=== PATIENT | female | born 1955 | race American Indian/Alaskan Native ===

== ENCOUNTER 2016-09-21 13:55 | Outpatient (CLI) | payer MEDICARE, MEDICAID | END 2016-09-21 13:56 | disposition home or self-care (01) | DX: G47.30 Sleep apnea, unspecified (principal) | CPT/HCPCS: 99214; G0463 ==

== ENCOUNTER 2016-11-13 13:06 | Outpatient (CLI) | payer MEDICARE, MEDICAID | END 2016-11-13 13:07 | disposition home or self-care (01) | DX: Z12.31 Encounter for screening mammogram for malignant neoplasm of breast (principal) ==

== ENCOUNTER 2016-12-12 10:37 | Outpatient (CLI) | payer MEDICARE, MEDICAID | END 2016-12-12 10:38 | disposition home or self-care (01) | DX: R19.4 Change in bowel habit (principal); B18.2 Chronic viral hepatitis C; K74.60 Unspecified cirrhosis of liver ==

== ENCOUNTER 2017-01-26 13:02 | Observation (INO) | payer MEDICARE, MEDICAID ==
[2017-01-26] MEDS ORDERED: HYDROmorphone 1 MG/ML SYRINGE IVP STA ×3 (13:19→14:56)
[2017-01-26] MEDS ORDERED: ONDANSETRON 4 MG/2 ML VIAL IVP STA (13:19)
[2017-01-26] MEDS ORDERED: IPRATROPIUM/ALBUTEROL 3 ML NEB INH STA (13:20)
[2017-01-26] MEDS ORDERED: BENZONATATE 100 MG CAPSULE PO STA (13:20)
[2017-01-26] MEDS ORDERED: guaiFENesin/CODEINE 5 ML UDC PO STA (13:21)
[2017-01-26] MEDS ORDERED: guaiFENesin/CODEINE 5 ML UDC ONE (13:31)
[2017-01-26] MEDS ORDERED: ONDANSETRON 4 MG/2 ML VIAL ONE (13:31)
[2017-01-26] MEDS ORDERED: HYDROmorphone 1 MG/ML SYRINGE ONE ×3 (13:31→15:05)
[2017-01-26] MEDS ORDERED: BENZONATATE 100 MG CAPSULE PO ONE (13:32)
[2017-01-26] MEDS ORDERED: LORazepam 2 MG/ML SYRINGE ONE (13:51)
[2017-01-26] MEDS ORDERED: LIDOCAINE TOPICAL 4% 50 ML BOTTLE MM STA (13:52)
[2017-01-26] MEDS ORDERED: LORazepam 2 MG/ML SYRINGE IVP STA (13:53)
[2017-01-26] MEDS ORDERED: LIDOCAINE TOPICAL 4% 50 ML BOTTLE MM ONE (13:54)
[2017-01-26] MEDS ORDERED: DEXAMETHASONE 10 MG/ML VIAL IVP STA (13:57)
[2017-01-26] MEDS ORDERED: DEXAMETHASONE 10 MG/ML VIAL ONE (14:02)
[2017-01-26] MEDS ORDERED: RACEPINEPHRINE 2.25% NEB INH ONE (14:25)
[2017-01-26] MEDS ORDERED: SODIUM CHLORIDE INHALATION 3 ML NEB ONE (14:27)
[2017-01-26] MEDS ORDERED: RACEPINEPHRINE 2.25% NEB INH STA (14:27)
[2017-01-26] MEDS ORDERED: LIDOCAINE VISCOUS 2% 15 ML UDC MM STA (14:57)
[2017-01-26] MEDS ORDERED: MAG HYDROX/AL HYDROX/SIMETH 30 ML UDC PO STA (14:57)
[2017-01-26] MEDS ORDERED: SODIUM CHLORIDE FLUSH 0.9% 10 ML SYRINGE IVP PRN (15:34)
[2017-01-26] MEDS ORDERED: LIDOCAINE VISCOUS 2% 15 ML UDC MM ONE (15:36)
[2017-01-26] MEDS ORDERED: MAG HYDROX/AL HYDROX/SIMETH 30 ML UDC ONE (15:36)
[2017-01-26] MEDS ORDERED: ALBUTEROL NEB 2.5 MG/3 ML INH PRN (15:38)
[2017-01-26] MEDS ORDERED: ACETAMINOPHEN 325 MG TABLET PO PRN (15:44)
[2017-01-26] MEDS ORDERED: oxyCODONE 5 MG TABLET PO PRN (15:44)
[2017-01-26] MEDS ORDERED: ALBUTEROL NEB 2.5 MG/3 ML INH STA (15:51)
[2017-01-26] MEDS ORDERED: ALBUTEROL NEB 2.5 MG/3 ML INH ONE (16:20)
[2017-01-26] MEDS ORDERED: CYCLOBENZAPRINE 10 MG TABLET PO PRN ×2 (16:35→17:11)
[2017-01-26] MEDS ORDERED: hydrOXYzine PAMOATE 25 MG CAPSULE PO PRN (16:57)
[2017-01-26] MEDS ORDERED: fentaNYL 50 MCG PATCH TOP SCH (17:00)
[2017-01-26] MEDS ORDERED: methylPREDNISolone SUCCINATE 125 MG/2 ML VIAL IVP SCH (17:00)
[2017-01-26] MEDS: oxyCODONE 5 MG TABLET PO PRN ×2 (17:13→22:03)
[2017-01-26] MEDS: PANTOPRAZOLE 40 MG TABLET PO SCH (17:13)
[2017-01-26] MEDS: SODIUM CHLORIDE FLUSH 0.9% 10 ML SYRINGE IVP SCH (17:13)
[2017-01-26] MEDS: NS W/20 MEQ KCL 1,000 ML IV SCH (17:14)
[2017-01-26] MEDS: BENZONATATE 100 MG CAPSULE PO PRN (18:36)
[2017-01-26] MEDS: AZITHROMYCIN INJ 500 MG in SODIUM CHLORIDE 0.9% 250 ML IV SCH (18:48)
[2017-01-26] MEDS: KETOROLAC 30 MG/ML VIAL IVP PRN (19:40)
[2017-01-26] MEDS: ZOLPIDEM 5 MG TABLET PO PRN (22:02)
[2017-01-26] MEDS: SPIRONOLACTONE 25 MG TABLET PO SCH (22:03)
[2017-01-26] MEDS: methylPREDNISolone SUCCINATE 40 MG/ML VIAL IVP SCH (22:03)
[2017-01-26] MEDS: IPRATROPIUM/ALBUTEROL 3 ML NEB INH PRN (22:10)
[2017-01-27] MEDS: NS W/20 MEQ KCL 1,000 ML IV SCH ×3 (04:27→22:05)
[2017-01-27] MEDS: oxyCODONE 5 MG TABLET PO PRN ×4 (04:28→23:58)
[2017-01-27] MEDS: SODIUM CHLORIDE FLUSH 0.9% 10 ML SYRINGE IVP SCH ×3 (04:31→21:36)
[2017-01-27] MEDS: PANTOPRAZOLE 40 MG TABLET PO SCH ×2 (06:28→16:36)
[2017-01-27] MEDS: KETOROLAC 30 MG/ML VIAL IVP PRN ×3 (07:54→21:39)
[2017-01-27] MEDS: IPRATROPIUM/ALBUTEROL 3 ML NEB INH PRN ×3 (09:00→19:15)
[2017-01-27] MEDS: methylPREDNISolone SUCCINATE 40 MG/ML VIAL IVP SCH ×2 (09:59→20:49)
[2017-01-27] MEDS: AZITHROMYCIN INJ 500 MG in SODIUM CHLORIDE 0.9% 250 ML IV SCH (09:59)
[2017-01-27] MEDS: CITALOPRAM 10 MG TABLET PO SCH (10:00)
[2017-01-27] MEDS: LEVOTHYROXINE 112 MCG TABLET PO SCH (10:00)
[2017-01-27] MEDS: FUROSEMIDE 40 MG TABLET PO SCH (10:00)
[2017-01-27] MEDS: DULoxetine 30 MG CAPSULE PO SCH (10:00)
[2017-01-27] MEDS: SPIRONOLACTONE 25 MG TABLET PO SCH ×2 (10:00→21:39)
[2017-01-27] MEDS: POLYETHYLENE GLYCOL 3350 17 GM PACKET PO SCH (10:01)
[2017-01-27] MEDS: BENZONATATE 100 MG CAPSULE PO PRN ×2 (10:16→20:49)
[2017-01-27] MEDS ORDERED: HYDROcodone/ACETAM 7.5 MG/325 MG 15 ML UDC PO PRN (16:58)
[2017-01-27] MEDS: ZOLPIDEM 5 MG TABLET PO PRN (21:32)
[2017-01-27] MEDS: DOCUSATE SODIUM 250 MG CAPSULE PO SCH (21:32)
[2017-01-27] MEDS: SENNA 8.6 MG TABLET PO SCH (21:32)
[2017-01-28] MEDS: PANTOPRAZOLE 40 MG TABLET PO SCH (06:04)
[2017-01-28] MEDS: SODIUM CHLORIDE FLUSH 0.9% 10 ML SYRINGE IVP SCH (06:04)
[2017-01-28] MEDS: BENZONATATE 100 MG CAPSULE PO PRN (06:04)
[2017-01-28] MEDS: IPRATROPIUM/ALBUTEROL 3 ML NEB INH PRN (07:26)
[2017-01-28] MEDS: NS W/20 MEQ KCL 1,000 ML IV SCH (07:30)
[2017-01-28] MEDS: methylPREDNISolone SUCCINATE 40 MG/ML VIAL IVP SCH (08:37)
[2017-01-28] MEDS: AZITHROMYCIN INJ 500 MG in SODIUM CHLORIDE 0.9% 250 ML IV SCH (08:41)
[2017-01-28] MEDS: POLYETHYLENE GLYCOL 3350 17 GM PACKET PO SCH (08:41)
[2017-01-28] MEDS: CITALOPRAM 10 MG TABLET PO SCH (08:46)
[2017-01-28] MEDS: DULoxetine 30 MG CAPSULE PO SCH (08:47)
[2017-01-28] MEDS: LEVOTHYROXINE 112 MCG TABLET PO SCH (08:47)
[2017-01-28] MEDS: FUROSEMIDE 40 MG TABLET PO SCH (08:47)
[2017-01-28] MEDS: SPIRONOLACTONE 25 MG TABLET PO SCH (08:47)
[2017-01-28] MEDS: DOCUSATE SODIUM 250 MG CAPSULE PO SCH (08:48)
[2017-01-28] MEDS: SENNA 8.6 MG TABLET PO SCH (08:48)
== END 2017-01-28 10:33 | disposition home or self-care (01) ==
DX: J44.0 Chronic obstructive pulmonary disease with (acute) lower respiratory infection (principal); J20.9 Acute bronchitis, unspecified; J44.1 Chronic obstructive pulmonary disease with (acute) exacerbation; M79.1 Myalgia; E03.9 Hypothyroidism, unspecified; F32.9 Major depressive disorder, single episode, unspecified; F41.9 Anxiety disorder, unspecified; M54.9 Dorsalgia, unspecified; G89.29 Other chronic pain; E66.9 Obesity, unspecified; Z87.01 Personal history of pneumonia (recurrent); Z79.891 Long term (current) use of opiate analgesic; Z68.28 Body mass index [BMI] 28.0-28.9, adult
CPT/HCPCS: 36415; 71010; 71020; 80053; 83690; 85025; 87581; 94640; 96365; 96366; 96375; 96376; 99284; 99285; A9270; G0378; J1170; J2060; J7613; J7620

== ENCOUNTER 2017-04-25 13:06 | Outpatient (CLI) | payer MEDICARE, MEDICAID ==
[2017-04-25 13:40] LABS: BILIRUBIN,TOTAL 0.8 mg/dL (0.2-1.0); CALCIUM 8.4 mg/dL (8.5-10.3); CREATININE 0.8 mg/dL (0.4-1.0); TOTAL PROTEIN 7.7 g/dL (6.7-8.2)
[2017-04-25] MEDS ORDERED: GADOBUTROL 7.5 MMOL/7.5 ML VIAL IVP ONE (14:28)
--- NOTE | 2017-04-25 15:09 | MRI Report ---
EXAM: MRI BRAIN WITHOUT AND WITH CONTRAST EXAM DATE: 04/25/2017 02:31 PM. CLINICAL HISTORY: Altered mental status. Headaches. COMPARISON: 10/16/2013. 10/14/2013. TECHNIQUE: Multiplanar, multisequence T1-weighted and fluid-sensitive MR sequences of the brain were performed. Sequences optimized for routine evaluation. Other: None. Without and with IV Contrast: 7 m L Gadavist. FINDINGS: Brain Volume: Normal for age. Parenchyma/Dura: No acute stroke or hemorrhage. No intracranial enhancing or space-occupying mass. Co ntrast opacification of the major dural venous sinuses is present as expected. Minimal white matter disease. There are now 3 or 4 additional tiny approximately 1 mm foci of nonspec ific deep white matter T2 hyperintensity in the cerebral hemispheres, there is no associated enhancem ent, these findings are likely attributable to aging and minimal chronic microangiopathy. Ventricles/Cisterns: No hydrocephalus. Sinuses: No acute sinus or mastoid disease. Bones: Stable marrow signal characteristics in the skull and clivus. Other: The major arterial skull base flow voids are present. Susceptibility artifact in the cervical spinal column is presumably related to surgical fusion hardwa re. IMPRESSION: No acute abnormality or enhancing mass. Minimally progressive nonspecific white matter T2 -hyperintense signal changes likely from aging and minimal chronic microangiopathy. Otherwise stable brain MRI compared to the prior exam. [facility] Referring Provider Line: [phone] SITE ID: [id number]
== END 2017-04-25 13:07 | disposition home or self-care (01) ==
LOC: DI 13:06
PROVIDERS: ATTEND Family Medicine
DX: R41.82 Altered mental status, unspecified (principal)
CPT/HCPCS: 36415; 70553; 80053; A9585

== ENCOUNTER 2017-05-01 13:32 | Outpatient (CLI) | payer MEDICARE, MEDICAID | END 2017-05-01 13:33 | disposition home or self-care (01) | LOC: LAB 13:32 | PROVIDERS: ATTEND Family Medicine | DX: R41.82 Altered mental status, unspecified (principal) | CPT/HCPCS: 36415; 82140 ==

== ENCOUNTER 2017-06-06 09:12 | Outpatient (CLI) | payer MEDICARE, MEDICAID ==
[2017-06-06 10:14] LABS: GTT GLUCOSE,FASTING 114 mg/dL (70-100)
== END 2017-06-06 09:13 | disposition home or self-care (01) ==
LOC: LAB 09:12
PROVIDERS: ATTEND Physician Assistant Medical
DX: R55 Syncope and collapse (principal)
CPT/HCPCS: 36415; 82951

== ENCOUNTER 2017-06-21 12:25 | Outpatient (CLI) | payer MEDICARE, MEDICAID ==
[2017-06-21 20:00] LABS: HEMOGLOBIN A1C 0.63 g/dL
== END 2017-06-21 12:26 | disposition home or self-care (01) ==
LOC: LAB.WCP 12:25
PROVIDERS: ATTEND Physician Assistant Medical
DX: R73.9 Hyperglycemia, unspecified (principal)
CPT/HCPCS: 36415; 83036

== ENCOUNTER 2017-08-01 04:49 | Emergency (ER) | payer MEDICARE, MEDICAID ==
[2017-08-01 05:43] LABS: BASOPHILS # (AUTO) 0.1 10^3/uL (0.0-0.1); BASOPHILS % (AUTO) 0.8 %; EOSINOPHILS # (AUTO) 0.4 10^3/uL (0.0-0.7); HCT - HEMATOCRIT 38.1 % (37.0-47.0); HGB - HEMOGLOBIN 12.9 g/dL (12.0-16.0); LYMPHOCYTES # (AUTO) 2.3 10^3/uL (1.5-3.5); LYMPHOCYTES % (AUTO) 25.6 %; MEAN CORPUSCULAR HEMOGLOBIN 30.1 pg (27.0-31.0); MEAN CORPUSCULAR HGB CONC 33.9 g/dL (32.0-36.0); MEAN CORPUSCULAR VOLUME 88.7 fL (81.0-99.0); MEAN PLATELET VOLUME 8.9 fL (7.9-10.8); MONOCYTES # (AUTO) 0.6 10^3/uL (0.0-1.0); MONOCYTES % (AUTO) 6.3 %; NEUTROPHILS # (AUTO) 5.8 10^3/uL (1.5-6.6); NEUTROPHILS % (AUTO) 63.3 %; RED BLOOD COUNT 4.29 10^6/uL (4.20-5.40); RED CELL DISTRIBUTION WIDTH 13.1 % (12.0-15.0); UNCORRECTED WHITE BLOOD COUNT 9.6 x10^3/uL; WHITE BLOOD COUNT 9.1 x10^3/uL (4.8-10.8)
[2017-08-01 05:44] LABS: INR 1.2 (0.8-1.2); PT - PROTHROMBIN TIME 13.7 secs (9.9-12.6)
[2017-08-01 05:46] LABS: BILIRUBIN,TOTAL 0.5 mg/dL (0.2-1.0); BUN - BLOOD UREA NITROGEN 9 mg/dL (6-20); CALCIUM 8.4 mg/dL (8.5-10.3); CARBON DIOXIDE - CO2 23 mmol/L (21-32); CHLORIDE 105 mmol/L (101-111); CREATININE 0.7 mg/dL (0.4-1.0); GFR - MDRD 85 (>89); GLUCOSE 237 mg/dL (70-100); LIPASE 34 U/L (22-51); POTASSIUM 3.9 mmol/L (3.5-5.0); SODIUM 134 mmol/L (135-145); TOTAL PROTEIN 6.9 g/dL (6.7-8.2)
[2017-08-01 05:51] LABS: PARTIAL THROMBOPLASTIN TIME 26.3 secs (24.9-33.3)
[2017-08-01 06:06] LABS: BILIRUBIN,URINE NEGATIVE (NEGATIVE)
[2017-08-01 06:13] LABS: UA w/ MICROSCOPIC CHARGE YES; UR CULTURE IF IND NOT INDICATED; WBC,URINE 0-3 /HPF (0-5)
--- NOTE | 2017-08-01 06:17 | CT Preliminary Report ---
Exam: CT HEAD W/O IMPRESSION: 1. No acute intracranial process. 2. Small right parietal scalp hematoma without calvarial fracture. [facility] SITE ID: [id number]
--- NOTE | 2017-08-01 06:22 | CT Report ---
EXAM: CT HEAD EXAM DATE: 08/01/2017 05:42 AM. CLINICAL HISTORY: Syncope, fall, head laceration and neck pain. COMPARISON: Brain MRI from 04/25/2017. TECHNIQUE: Multiaxial CT images were obtained from the foramen magnum to the vertex. IV contrast: Non e. Reformats: Coronal. In accordance with CT protocol optimization, one or more of the following dose reduction techniques w ere utilized for this exam: automated exposure control, adjustment of mA and/or KV based on patient s ize, or use of iterative reconstructive technique. FINDINGS: Parenchyma: No intraparenchymal hemorrhage. No evidence of mass, midline shift, or CT findings of acu te infarction. Mckeon-white differentiation is distinct. Diffuse chronic microangiopathic white matter changes are evident. Extraaxial Spaces: Normal for age. No subdural or epidural collections identified. Ventricles: The ventricles and cortical sulci are mildly enlarged, consistent with age-related tissue loss. Sinuses and orbits: Imaged paranasal sinuses, orbits, and mastoids show no significant abnormality. Bones: A small right parietal scalp hematoma is present without an underlying calvarial fracture. IMPRESSION: 1. No acute intracranial process. 2. Small right parietal scalp hematoma without calvarial fracture. [facility] Referring Provider Line: [phone] SITE ID: [id number]
[2017-08-01 06:27] LABS: PLATELET ESTIMATE, MANUAL DECREASED (<130,000) (NORMAL); PLATELET MORPHOLOGY NORMAL APPEARANCE (NORMAL)
--- NOTE | 2017-08-01 06:27 | ED Physician Documentation ---
PD HPI HEAD INJURY - Stated complaint Stated Complaint: HEAD LACERATION - Chief complaint Chief Complaint: Trauma Hd/Nk - History obtained from History obtained from: Patient, Family, EMS - History of Present Illness Mechanism of head injury: Fell, Laceration Where head injury occurred: Home Timing - onset: Today Location of injury: Right, Back Quality of pain: Pain Associated symptoms: Neck pain Symptoms worsen with: Palpation, Movement Similar symptoms before: Work up / diagnostics, Treatment Recently seen: Not recently seen - Additional information Additional information: Patient is a 62 year old female with chronic pain and a history of mulitple syncopal episodes for which she is being worked up, had a syncopal episode tonight causing her to fall and cut her head. Patient called her daughter who called her friend to come pick the patient up. Patient had excessive bleeding. Patient stated that she had head and neck pain, but she always has pain so she is unsure if if came from the fall, or if it was her chronic pain for which she is being treated. Review of Systems Constitutional: denies: Fever, Chills Eyes: denies: Loss of vision, Decreased vision Ears: denies: Drainage/discharge Nose: denies: Epistaxis Throat: denies: Dental pain / toothache, Oral lesions / sores Cardiac: denies: Chest pain / pressure Respiratory: reports: Reviewed and negative GI: denies: Nausea, Vomiting, Constipation, Diarrhea Skin: reports: Laceration (s). denies: Lesions Musculoskeletal: reports: Neck pain, Back pain Neurologic: reports: Syncope, Headache, Head injury. 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 HEENT: Tonsil/Adenoidectomy - Present Medications Home Medications: Ambulatory Orders Medication Instructions Recorded Confirmed Citalopram Hydrobromide [Celexa] 60 mg PO DAILY 08/28/14 08/01/17 Furosemide 40 mg PO DAILY 08/28/14 08/01/17 Hydroxyzine HCl 25 mg PO QPM 08/28/14 08/01/17 Levothyroxine [Synthroid] 112 mcg PO DAILY 08/28/14 08/01/17 Potassium Chloride [Klor-Con] 20 meq PO DAILY 08/28/14 08/01/17 Spironolactone 25 mg PO BID 08/28/14 08/01/17 Zolpidem Tartrate [Ambien] 5 mg PO QPM PRN 08/28/14 08/01/17 Albuterol 2.5 mg INH Q4H PRN 01/26/17 08/01/17 Albuterol Sulfate [Proair Hfa 2 puffs INH Q4H PRN 01/26/17 08/01/17 Inhaler] Cyclobenzaprine [Flexeril] 10 mg PO TID PRN 01/26/17 08/01/17 Duloxetine HCl 90 mg PO DAILY 01/26/17 08/01/17 Fluticasone/Salmeterol [Advair 1 puffs INH BID 01/26/17 08/01/17 100-50 Diskus] Omeprazole 20 mg PO BID 01/26/17 08/01/17 Oxycodone HCl/Acetaminophen 1 tab PO BID PRN 01/26/17 08/01/17 [Percocet 10-325 mg Tablet] fentaNYL 50 MCG PATCH [Duragesic 50 mcg TOP Q72H 01/26/17 08/01/17 50mcg patch] Azithromycin [Zithromax] 250 mg PO DAILY #8 01/28/17 08/01/17 Benzonatate [Tessalon] 200 mg PO TID PRN #24 capsule 01/28/17 08/01/17 - Allergies Allergies/Adverse Reactions: Allergies Allergy/AdvReac Type Severity Reaction Status Date / Time gadopentetate dimeglumine * Allergy Mild Rash Verified 08/01/17 05:45 [From Magnevist] iodine Allergy Unknown Verified 08/01/17 05:45 - Social History Does the pt smoke?: No Smoking Status: Never smoker Does the pt drink ETOH?: No - Immunizations Immunizations are current?: Yes PD ED PE NORMAL - Vitals Vital signs reviewed: Yes - General General: Alert and oriented X 3 - HEENT HEENT: PERRL, Ears normal, Pharynx benign - Cardiac Cardiac: No murmur - Respiratory Respiratory: No respiratory distress, Clear bilaterally - Abdomen Abdomen: Soft, Non tender, Non distended - Derm Derm: Normal color, Warm and dry - Extremities Extremities: No deformity, No tenderness to palpate, Normal ROM s pain - Neuro Neuro: Alert and oriented X 3, No motor deficit, No sensory deficit, Normal speech Eye Opening: Spontaneous Motor: Obeys Commands Verbal: Oriented GCS Score: 15 PD ED PE EXPANDED - General General: Alert - HEENT HEENT: Head injury (punctate laceration with superficial arterial involvment) - Neck Neck: Soft tissue TTP, Bony TTP, Limited ROM Results - Vitals Vitals: Vital Signs - 24 hr 08/01/17 08/01/17 08/01/17 04:54 05:12 05:43 Temperature 37.0 C Heart Rate 109 H 98 105 H Respiratory 20 20 19 Rate Blood Pressure 151/82 H 130/71 124/70 O2 Saturation 96 97 96 08/01/17 08/01/17 06:01 06:24 Temperature Heart Rate 97 97 Respiratory 17 17 Rate Blood Pressure 128/70 123/65 O2 Saturation 96 95 Oxygen O2 Source Room air - EKG (time done) 0519 Rate: Rate (enter#) (100) Rhythm: Sinus tachycardia [place]: Normal, LAD Ischemia: Non specific changes Compare to prior EKG: Old EKG unavailable - Labs Labs: Laboratory Tests 08/01/17 08/01/17 08/01/17 05:20 05:20 05:20 WBC 9.1 RBC 4.29 Hgb 12.9 Hct 38.1 MCV 88.7 MCH 30.1 MCHC 33.9 RDW 13.1 Plt Count 115 L MPV 8.9 Neut # 5.8 Lymph # 2.3 [place] # 0.6 Eos # 0.4 Baso # 0.1 Absolute Nucleated RBC 0.00 Nucleated RBC % 0.0 Manual Slide Review Indicated Platelet Estimate DECREASED (<130,000) Platelet Morphology NORMAL APPEARANCE RBC Morph Micro Appear NORMAL APPEARANCE PT 13.7 H INR 1.2 APTT 26.3 Sodium 134 L Potassium 3.9 Chloride 105 Carbon Dioxide 23 Anion Gap 6.0 BUN 9 Creatinine 0.7 Estimated GFR (MDRD) 85 L Glucose 237 H Calcium 8.4 L Total Bilirubin 0.5 AST 41 ALT 24 Alkaline Phosphatase 207 H Troponin I Total Protein 6.9 Albumin 3.5 Globulin 3.4 Albumin/Globulin Ratio 1.0 Lipase 34 Urine Color Urine Clarity Urine pH Ur Specific [place] Urine Protein Urine Glucose (UA) Urine Ketones Urine Occult Blood Urine Nitrite Urine Bilirubin Urine Urobilinogen Ur Leukocyte Esterase Urine RBC Urine WBC Ur Squamous Epith Cells Urine Bacteria Ur Microscopic Review Urine Culture Comments Urine Opiates Screen Ur Oxycodone Screen Urine Methadone Screen Ur Propoxyphene Screen Ur Barbiturates Screen Ur Tricyclics Screen Ur Phencyclidine Scrn Ur Amphetamine Screen U Methamphetamines Scrn U Benzodiazepines Scrn Urine Cocaine Screen U Cannabinoids Screen Ethyl Alcohol < 5.0 08/01/17 08/01/17 05:20 05:20 WBC RBC Hgb Hct MCV MCH MCHC RDW Plt Count MPV Neut # Lymph # [place] # Eos # Baso # Absolute Nucleated RBC Nucleated RBC % Manual Slide Review Platelet Estimate Platelet Morphology RBC Morph Micro Appear PT INR APTT Sodium Potassium Chloride Carbon Dioxide Anion Gap BUN Creatinine Estimated GFR (MDRD) Glucose Calcium Total Bilirubin AST ALT Alkaline Phosphatase Troponin I < 0.04 Total Protein Albumin Globulin Albumin/Globulin Ratio Lipase Urine Color YELLOW Urine Clarity CLEAR Urine pH 6.0 Ur Specific [place] 1.025 Urine Protein NEGATIVE Urine Glucose (UA) NEGATIVE Urine Ketones NEGATIVE Urine Occult Blood MODERATE H Urine Nitrite NEGATIVE Urine Bilirubin NEGATIVE Urine Urobilinogen 0.2 (NORMAL) Ur Leukocyte Esterase NEGATIVE Urine RBC 0-5 Urine WBC 0-3 Ur Squamous Epith Cells FEW Squamous Urine Bacteria None Seen Ur Microscopic Review INDICATED Urine Culture Comments NOT INDICATED Urine Opiates Screen NEGATIVE Ur Oxycodone Screen POSITIVE H Urine Methadone Screen NEGATIVE Ur Propoxyphene Screen NEGATIVE Ur Barbiturates Screen NEGATIVE Ur Tricyclics Screen NEGATIVE Ur Phencyclidine Scrn NEGATIVE Ur Amphetamine Screen NEGATIVE U Methamphetamines Scrn NEGATIVE U Benzodiazepines Scrn NEGATIVE Urine Cocaine Screen NEGATIVE U Cannabinoids Screen NEGATIVE Ethyl Alcohol - Rads (name of study) ct head Radiology: Final report received (scalp hematoma, no intracranial abnormality) ct cervical spine Radiology: Final report received (no acute fracture or dislocation) Procedures - Laceration (location) right scalp Length in cm: 0.5 Wound type: Stellate Neurovascular status: Sensory intact, Vascular intact Anesthesia: Lidocaine 2% with epi Wound Preparation: Chlorhexadine, Irrigated copiously NS Skin layer closure: Sa[place] Other: Patient tolerated well, Neurovascular intact, Tetanus UTD Complexity: Intermediate PD MEDICAL DECISION MAKING - ED course Complexity details: reviewed old records, reviewed results, re-evaluated patient , considered differential, d/w patient, d/w family ED course: Patient was seen and examined at bedside. ekg was performed and imaging was ordered. When patient returned from imaging the results were reviewed. there was no acute fracture or dislocation. Patient's wound was small but had an arterial component. It was repaired with pressure, stables and coagulation dressing. Patients bleeding was controlled and was stable for discharge with outpatient follow up. Departure - Departure Disposition: Home, Self Care Clinical Impression: Scalp laceration Condition: Good Instructions: ED Laceration Scalp Stitch Or Stap Follow-Up: Melissa Singh PA-C [Primary Care Provider] - Comments: Your diagnostics today were within normal limits. You had saida placed over the wound and will need to have the saida removed in about a week. You should leave the dressing on for the next 24 hours to make sure the bleeding is controlled. You can take you home pain medications. You should continue to work with your primary care physician to help find the source of your syncope. You may return to the emergency department at any time for new, worsening or uncontrollable symptoms.
--- NOTE | 2017-08-01 06:31 | CT Preliminary Report ---
Exam: CT CERVICAL SPINE W/O IMPRESSION: 1. No acute cervical spine fracture or interval change in alignment compared to the cervical spine ra diographs from 07/03/2016. 2. Stable anterior fusion changes from C5-C7 without evidence of hardware failure or loosening. [facility] SITE ID: [id number]
--- NOTE | 2017-08-01 06:38 | CT Report ---
EXAM: CT CERVICAL SPINE WITHOUT CONTRAST DATE: 08/01/2017 05:41 AM. HISTORY: Syncope, fall, head laceration and neck pain. COMPARISONS: Cervical spine radiographs from 07/03/2016. TECHNIQUE: Thin-section axial images were acquired of the cervical spine without contrast. Post-proce ssing: Coronal and sagittal reformats. Other: None. In accordance with CT protocol optimization, one or more of the following dose reduction techniques w ere utilized for this exam: automated exposure control, adjustment of mA and/or KV based on patient s ize, or use of iterative reconstructive technique. FINDINGS: Alignment: Mckeon-white anterolisthesis at C3-C4 is stable. There is no spondylolisthesis. Bones: No acute cervical spine fracture is identified. Anterior fusion from C5-C7 is again demonstrat ed. There is solid bony fusion across the disk spaces. There is no evidence of hardware failure or lo osening. Interspace Levels/Facets: C1-C2: Moderate degenerative changes are present without craniocervical stenosis. C2-C3: Bilateral facet arthropathy is present without spinal canal or foraminal stenosis. C3-C4: Anterolisthesis is present at this level with uncovering of the disk. The spinal canal is campbell nt. There is mild bilateral foraminal narrowing due to facet arthropathy and anterolisthesis. C4-C5: A posterior disk osteophyte complex is present without spinal canal stenosis. There is mild bi lateral foraminal narrowing due to uncovertebral hypertrophy and facet arthropathy. C5-C6: Anterior fusion is present at this level. The spinal canal and foramina are patent. C6-C7: Anterior fusion is present at this level. The spinal canal and foramina are patent. C7-T1: Unremarkable. Musculature: There is mild diffuse fatty atrophy of the posterior paraspinal muscles. Other: The paravertebral and prevertebral soft tissues are normal. The lung apices are clear. IMPRESSION: 1. No acute cervical spine fracture or interval change in alignment compared to the cervical spine ra diographs from 07/03/2016. 2. Stable anterior fusion changes from C5-C7 without evidence of hardware failure or loosening. [facility] Referring Provider Line: [phone] SITE ID: [id number]
[2017-08-01 06:52] VITALS: BP 116/75
== END 2017-08-01 06:52 | disposition home or self-care (01) ==
LOC: ED 04:49
DX: S01.01XA Laceration without foreign body of scalp, initial encounter (principal); W18.30XA Fall on same level, unspecified, initial encounter; W45.8XXA Other foreign body or object entering through skin, initial encounter; R00.0 Tachycardia, unspecified; E03.9 Hypothyroidism, unspecified; K75.9 Inflammatory liver disease, unspecified
CPT/HCPCS: 12031; 36415; 70450; 72125; 80053; 80306; 80320; 81001; 81003; 83690; 84484; 85025; 85610; 85730; 87086; 93005; 99284; 99285

== ENCOUNTER 2017-10-18 11:20 | Outpatient (CLI) | payer MEDICARE, MEDICAID | END 2017-10-18 11:21 | disposition home or self-care (01) | LOC: LAB.WCP 11:20 | PROVIDERS: ATTEND Physician Assistant Medical | DX: E03.9 Hypothyroidism, unspecified (principal) | CPT/HCPCS: 36415; 84443 ==

== ENCOUNTER 2018-03-21 13:13 | Outpatient (CLI) | payer MEDICARE, MEDICAID ==
--- NOTE | 2018-03-22 13:46 | Mammography Report ---
Procedure Date: 03/21/2018 Accession Number: [id number] / [id number] Procedure: QIAN - Screening Mammo Dig Bilat CPT Code: FULL RESULT: EXAM: Screening Mammo Dig Bilat DATE: 03/21/2018 1:35 PM CLINICAL HISTORY: 62-year-old with history of late childbearing for screening TECHNIQUE: Bilateral CC and MLO views were obtained. COMPARISON: 11/13/2016, 06/29/2015, 12/12/2013, 11/28/2013, 07/02/2012 FINDINGS: The breasts demonstrate scattered fibroglandular densities bilaterally. No suspicious masses, clustered microcalcifications, or regions of architectural distortion are identified. IMPRESSION: Negative examination RECOMMENDATION: Routine annual screening unless otherwise clinically indicated. BIRADS CATEGORY 1: Negative STANDARD QUALIFYING STATEMENTS: 1. This examination was reviewed with the aid of Computer-Aided Detection (CAD). 2. A negative or benign imaging report should not delay biopsy if clinically suspicious findings are present. Consider surgical consultation if warrented. More than 5% of cancers are not identified by imaging. 3. Dense breasts may obscure an underlying neoplasm.
== END 2018-03-21 13:14 | disposition home or self-care (01) ==
LOC: DI 13:13
PROVIDERS: ATTEND Physician Assistant Medical
DX: Z12.31 Encounter for screening mammogram for malignant neoplasm of breast (principal)
CPT/HCPCS: 77067

== ENCOUNTER 2018-08-29 16:17 | Emergency (ER) | payer MEDICARE, MEDICAID ==
[2018-08-29] MEDS ORDERED: HYDROmorphone 1 MG/ML CARPUJECT IVP STA (16:35)
[2018-08-29] MEDS ORDERED: ONDANSETRON 4 MG/2 ML VIAL IVP STA (16:35)
[2018-08-29] MEDS ORDERED: SODIUM CHLORIDE 0.9% 1,000 ML IV ONE (16:35)
--- NOTE | 2018-08-29 16:38 | ED Physician Documentation ---
PD HPI ABD PAIN - Stated complaint Stated Complaint: SENT BY - Chief complaint Chief Complaint: Abd Pain - History obtained from History obtained from: Patient, Family (son) - History of Present Illness Timing - onset: Other (2.5 weeks of low left abd pain, bomiting and thin stools. 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 HEENT: Tonsil/Adenoidectomy - Present Medications Home Medications: Ambulatory Orders Medication Instructions Recorded Confirmed Citalopram Hydrobromide [Celexa] 60 mg PO DAILY 08/28/14 08/01/17 Furosemide 40 mg PO DAILY 08/28/14 08/01/17 Hydroxyzine HCl 25 mg PO QPM 08/28/14 08/01/17 Levothyroxine [Synthroid] 112 mcg PO DAILY 08/28/14 08/01/17 Spironolactone 25 mg PO BID 08/28/14 08/01/17 Zolpidem Tartrate [Ambien] 5 mg PO QPM PRN 08/28/14 08/01/17 Albuterol 2.5 mg INH Q4H PRN 01/26/17 08/01/17 Albuterol Sulfate [Proair Hfa 2 puffs INH Q4H PRN 01/26/17 08/01/17 Inhaler] Cyclobenzaprine [Flexeril] 10 mg PO TID PRN 01/26/17 08/01/17 Duloxetine HCl 90 mg PO DAILY 01/26/17 08/01/17 Fluticasone/Salmeterol [Advair 1 puffs INH BID 01/26/17 08/01/17 100-50 Diskus] Omeprazole 20 mg PO BID 01/26/17 08/01/17 Oxycodone HCl/Acetaminophen 1 tab PO BID PRN 01/26/17 08/01/17 [Percocet 10-325 mg Tablet] fentaNYL 50 MCG PATCH [Duragesic 50 mcg TOP Q72H 01/26/17 08/01/17 50mcg patch] Benzonatate [Tessalon] 200 mg PO TID PRN #24 capsule 01/28/17 08/01/17 Dicyclomine [Bentyl] 20 mg PO QID PRN #20 capsule 08/29/18 Ondansetron HCl [Zofran] 4 mg PO Q6H PRN #15 tablet 08/29/18 - Allergies Allergies/Adverse Reactions: Allergies Allergy/AdvReac Type Severity Reaction Status Date / Time gadopentetate dimeglumine * Allergy Mild Rash Verified 08/01/17 05:45 [From Magnevist] iodine Allergy Unknown Verified 08/29/18 16:23 - Social History Does the pt smoke?: No Smoking Status: Never smoker Does the pt drink ETOH?: No - Immunizations Immunizations are current?: Yes PD ED PE NORMAL - Vitals Vital signs reviewed: Yes - General General: Alert and oriented X 3, No acute distress - HEENT HEENT: PERRL, EOMI - Neck Neck: Supple, no meningeal sign, No bony TTP - Cardiac Cardiac: RRR, No murmur - Respiratory Respiratory: No respiratory distress, Clear bilaterally - Abdomen Abdomen: Other (Slightly hyperactive bowel tones with mild diffuse and lower abdominal tenderness but no surgical signs.) - Back Back: No CVA TTP, No spinal TTP - Derm Derm: Normal color, Warm and dry - Extremities Extremities: No edema, No calf tenderness / cord - Neuro Neuro: Alert and oriented X 3, Normal speech Results - Vitals Vitals: Vital Signs - 24 hr 08/29/18 16:22 Temperature 36 C L Heart Rate 66 Respiratory 20 Rate Blood Pressure 154/80 H O2 Saturation 95 Oxygen O2 Source Room air - Labs Labs: Laboratory Tests 08/29/18 08/29/18 08/29/18 17:00 17:00 17:57 WBC 8.7 RBC 5.04 Hgb 14.9 Hct 43.8 MCV 86.9 MCH 29.5 MCHC 34.0 RDW 14.2 Plt Count 183 MPV 8.5 Neut # (Auto) 4.4 Lymph # (Auto) 3.1 [place] # (Auto) 0.7 Eos # (Auto) 0.4 Baso # (Auto) 0.1 Absolute Nucleated RBC 0.01 Nucleated RBC % 0.1 Sodium 137 Potassium 2.9 L Chloride 97 L Carbon Dioxide 32 Anion Gap 8.0 BUN 11 Creatinine 0.9 Estimated GFR (MDRD) 63 L Glucose 120 H Calcium 9.3 Total Bilirubin 1.0 AST 44 H ALT 24 Alkaline Phosphatase 161 H Total Protein 7.6 Albumin 3.8 Globulin 3.8 Albumin/Globulin Ratio 1.0 Lipase 29 Urine Color YELLOW Urine Clarity CLEAR Urine pH 7.5 Ur Specific [place] 1.010 Urine Protein NEGATIVE Urine Glucose (UA) NEGATIVE Urine Ketones NEGATIVE Urine Occult Blood NEGATIVE Urine Nitrite NEGATIVE Urine Bilirubin NEGATIVE Urine Urobilinogen 0.2 (NORMAL) Ur Leukocyte Esterase NEGATIVE Ur Microscopic Review NOT INDICATED Urine Culture Comments NOT INDICATED PD MEDICAL DECISION MAKING - ED course ED course: 63-year-old woman with chronic narcotic dependence presents with diffuse abdominal pain but no tenderness as well as 2-1/2 weeks of vomiting and poor oral intake and reportedly positive orthostatics at the office. Her exam is unremarkable here as is her lab work. CT was done with findings as shown. Feeling better after divided dose of pain and nausea medicine here and passed an oral challenge and potassium was repleted orally. Departure - Departure Disposition: 01 Home, Self Care Clinical Impression: Hypokalemia Abdominal pain Qualifiers: Abdominal location: generalized Qualified Code(s): R10.84 - Generalized abdominal pain Condition: Good Record reviewed to determine appropriate education?: Yes Instructions: ED Abdominal Pain Unkn Cause Prescriptions: Dicyclomine [Bentyl] 20 mg PO QID PRN #20 capsule PRN Reason: Abdominal Pain Ondansetron HCl [Zofran] 4 mg PO Q6H PRN #15 tablet PRN Reason: Nausea / Vomiting Comments: Call your doctor to arrange a follow-up appointment, make the next available appointment. In the interim, return anytime if worse or if new symptoms develop.
[2018-08-29 17:12] LABS: BASOPHILS # (AUTO) 0.1 10^3/uL (0.0-0.1); BASOPHILS % (AUTO) 1.1 %; EOSINOPHILS # (AUTO) 0.4 10^3/uL (0.0-0.7); HGB - HEMOGLOBIN 14.9 g/dL (12.0-16.0); LYMPHOCYTES # (AUTO) 3.1 10^3/uL (1.5-3.5); MEAN CORPUSCULAR HEMOGLOBIN 29.5 pg (27.0-31.0); MEAN CORPUSCULAR VOLUME 86.9 fL (81.0-99.0); MEAN PLATELET VOLUME 8.5 fL (7.9-10.8); MONOCYTES # (AUTO) 0.7 10^3/uL (0.0-1.0); MONOCYTES % (AUTO) 8.3 %; NEUTROPHILS # (AUTO) 4.4 10^3/uL (1.5-6.6); NEUTROPHILS % (AUTO) 50.6 %; PLT - PLATELET COUNT 183 10^3/uL (130-450); RED BLOOD COUNT 5.04 10^6/uL (4.20-5.40); RED CELL DISTRIBUTION WIDTH 14.2 % (12.0-15.0); WHITE BLOOD COUNT 8.7 x10^3/uL (4.8-10.8)
[2018-08-29 17:35] LABS: ALBUMIN 3.8 g/dL (3.2-5.5); CALCIUM 9.3 mg/dL (8.5-10.3); CREATININE 0.9 mg/dL (0.4-1.0); TOTAL PROTEIN 7.6 g/dL (6.7-8.2)
[2018-08-29 18:07] LABS: BILIRUBIN,URINE NEGATIVE (NEGATIVE); GLUCOSE, URINE (UA) NEGATIVE (NEGATIVE); KETONES,URINE (UA) NEGATIVE (NEGATIVE); LEUKOCYTE ESTERASE, URINE NEGATIVE (NEGATIVE); NITRITE,URINE NEGATIVE (NEGATIVE); OCCULT BLOOD,URINE NEGATIVE (NEGATIVE); PH,URINE 7.5 PH (5.0-7.5); PROTEIN,URINE NEGATIVE (NEGATIVE); UROBILINOGEN,URINE 0.2 (NORMAL) E.U./dL (NORMAL)
[2018-08-29 18:10] LABS: CLARITY,URINE CLEAR (CLEAR)
--- NOTE | 2018-08-29 18:12 | CT Report ---
Reason: abd pain, iodine allergy Procedure Date: 08/29/2018 Accession Number: [id number] / [id number] Procedure: CT - Abdomen/Pelvis W/O CPT Code: FULL RESULT: EXAM: CT ABDOMEN AND PELVIS (CT KUB) EXAM DATE: 08/29/2018 05:48 PM. CLINICAL HISTORY: Abd pain, iodine allergy. Nausea and vomiting for 2 weeks. Diarrhea for 2 days. COMPARISONS: ABDOMEN/PELVIS W/ 02/11/2015 10:40 AM. TECHNIQUE: Routine axial helical CT imaging was performed through the abdomen and pelvis without IV contrast. Reconstructions: Coronal and sagittal. In accordance with CT protocol optimization, one or more of the following dose reduction techniques were utilized for this exam: automated exposure control, adjustment of mA and/or KV based on patient size, or use of iterative reconstructive technique. FINDINGS: Lung Bases: Unremarkable. Right Kidney/Ureter: 1 mm lower pole calculus. No ureteral calculus. No hydronephrosis or perinephric fat stranding. Left Kidney/Ureter: No stones, hydronephrosis, or hydroureter. No perinephric fat stranding. Other Solid Organs: Mildly small liver with micronodular contour, as before. Noncontrast images of the pancreas, spleen, and adrenal glands are unremarkable. Gallbladder/Bile Ducts: Gallbladder surgically absent. No significant intrahepatic or extra hepatic biliary ductal dilatation. Peritoneal Cavity: Unopacified stomach and small bowel are nondistended. Normal appendix. Small amount of formed stool in the colon. No pericolonic fat stranding. No lymphadenopathy, ascites, or pneumoperitoneum. Pelvic Organs: Bladder unremarkable. Uterus surgically absent. No adnexal masses are identified. Vasculature: Perisplenic varices again noted. Mild calcification of the normal caliber abdominal aorta. Other: Abdominal wall unremarkable. Moderate degenerative disk disease L4-L5. Unfused ring apophysis anterosuperiorly L3, anterosuperiorly and anterior inferiorly L4 vertebral bodies. IMPRESSION: 1. No specific findings to explain abdominal pain. 2. Hepatic cirrhosis. Perisplenic varices, as before. No ascites. 3. Nonobstructing 1 mm lower pole right renal calculus. [facility]
[2018-08-29] MEDS ORDERED: KETOROLAC 60 MG/2 ML VIAL IVP STA (18:24)
[2018-08-29] MEDS ORDERED: POTASSIUM BICARB 25 MEQ TABLET PO STA (18:24)
[2018-08-29] MEDS ORDERED: METOCLOPRAMIDE 10 MG/2 ML VIAL IVP STA (18:24)
[2018-08-29 19:27] VITALS: BP 146/77
== END 2018-08-29 19:39 | disposition home or self-care (01) ==
LOC: ED 16:17
DX: E87.6 Hypokalemia (principal); E86.0 Dehydration; I95.1 Orthostatic hypotension; F17.200 Nicotine dependence, unspecified, uncomplicated; R10.84 Generalized abdominal pain; R11.2 Nausea with vomiting, unspecified
CPT/HCPCS: 36415; 74176; 80053; 81003; 83690; 85025; 96361; 96374; 96375; 99283; 99284; A9270; J1170; J2765; 81001; 87086

== ENCOUNTER 2018-08-30 14:38 | Outpatient (CLI) | payer MEDICARE, MEDICAID ==
[2018-08-30 15:03] LABS: CALCIUM 9.1 mg/dL (8.5-10.3)
[2018-08-30 15:32] LABS: ALBUMIN 3.8 g/dL (3.2-5.5); BILIRUBIN,TOTAL 1.4 mg/dL (0.2-1.0); CREATININE 0.9 mg/dL (0.4-1.0); TOTAL PROTEIN 7.6 g/dL (6.7-8.2)
== END 2018-08-30 14:39 | disposition home or self-care (01) ==
LOC: LAB 14:38
PROVIDERS: ATTEND Physician Assistant
DX: R11.2 Nausea with vomiting, unspecified (principal)
CPT/HCPCS: 36415; 80053

== ENCOUNTER 2018-09-19 18:57 | Outpatient (CLI) | payer MEDICARE, MEDICAID | END 2018-09-19 18:58 | disposition critical access hospital (66) | LOC: EMS 18:57 | PROVIDERS: ATTEND Surgery | DX: R10.9 Unspecified abdominal pain (principal) | CPT/HCPCS: A0425; A0429 ==

== ENCOUNTER 2018-09-19 19:19 | Emergency (ER) | payer MEDICARE, MEDICAID ==
[2018-09-19 19:46] LABS: BASOPHILS # (AUTO) 0.1 10^3/uL (0.0-0.1); BASOPHILS % (AUTO) 0.9 %; EOSINOPHILS # (AUTO) 0.3 10^3/uL (0.0-0.7); EOSINOPHILS % (AUTO) 3.3 %; HGB - HEMOGLOBIN 14.8 g/dL (12.0-16.0); LYMPHOCYTES # (AUTO) 2.2 10^3/uL (1.5-3.5); LYMPHOCYTES % (AUTO) 25.2 %; MEAN CORPUSCULAR HEMOGLOBIN 29.6 pg (27.0-31.0); MEAN CORPUSCULAR HGB CONC 33.5 g/dL (32.0-36.0); MEAN CORPUSCULAR VOLUME 88.5 fL (81.0-99.0); MEAN PLATELET VOLUME 8.5 fL (7.9-10.8); MONOCYTES # (AUTO) 0.7 10^3/uL (0.0-1.0); MONOCYTES % (AUTO) 7.8 %; NEUTROPHILS # (AUTO) 5.5 10^3/uL (1.5-6.6); NEUTROPHILS % (AUTO) 62.8 %; PLT - PLATELET COUNT 146 10^3/uL (130-450); RED BLOOD COUNT 4.99 10^6/uL (4.20-5.40); WHITE BLOOD COUNT 8.8 x10^3/uL (4.8-10.8)
[2018-09-19 19:56] LABS: ALBUMIN 3.8 g/dL (3.2-5.5); CALCIUM 9.5 mg/dL (8.5-10.3); CREATININE 0.7 mg/dL (0.4-1.0); TOTAL PROTEIN 7.5 g/dL (6.7-8.2)
--- NOTE | 2018-09-19 20:08 | ED Physician Documentation ---
PD HPI ABD PAIN - Stated complaint Stated Complaint: N/V, ABD PAIN - Chief complaint Chief Complaint: Abd Pain - History obtained from History obtained from: Patient - History of Present Illness Timing - onset: How many weeks ago (6) Timing - details: Gradual onset, Waxing and waning Pain level now: 8 Quality: Pain Location: RUQ, Epigastric, LUQ, Periumbilical Radiation: Other (does not radiate) Improved by: Laying still Worsened by: Palpation Associated symptoms: Nausea, Vomiting. No: Fever, Diarrhea, Constipation Similar symptoms before: No diagnosis Recently seen: Emergency Dept (T+R last month for same, w/u included blood tests and CT A/P without diagnostic results) - Additional information Additional information: c/o 6 weeks of vomiting and abdominal pain. Is on several medications for this including pain medications (including fentanyl patches, percocet, PPI, ranitidine). w/u thus far has not yielded a diagnosis, and patient says she is scheduled to see GI later this month for upper GI endoscopy. Presents due to worsening pain and vomiting uncontrolled with home medications. Review of Systems Constitutional: reports: Reviewed and negative Cardiac: reports: Reviewed and negative Respiratory: reports: Reviewed and negative GI: reports: Abdominal Pain, Nausea, Vomiting. 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 HEENT: Tonsil/Adenoidectomy - Present Medications Home Medications: Ambulatory Orders Medication Instructions Recorded Confirmed Citalopram Hydrobromide [Celexa] 60 mg PO DAILY 08/28/14 08/01/17 Furosemide 40 mg PO DAILY 08/28/14 08/01/17 Hydroxyzine HCl 25 mg PO QPM 08/28/14 08/01/17 Levothyroxine [Synthroid] 112 mcg PO DAILY 08/28/14 08/01/17 Spironolactone 25 mg PO BID 08/28/14 08/01/17 Zolpidem Tartrate [Ambien] 5 mg PO QPM PRN 08/28/14 08/01/17 Albuterol 2.5 mg INH Q4H PRN 01/26/17 08/01/17 Albuterol Sulfate [Proair Hfa 2 puffs INH Q4H PRN 01/26/17 08/01/17 Inhaler] Cyclobenzaprine [Flexeril] 10 mg PO TID PRN 01/26/17 08/01/17 Duloxetine HCl 90 mg PO DAILY 01/26/17 08/01/17 Fluticasone/Salmeterol [Advair 1 puffs INH BID 01/26/17 08/01/17 100-50 Diskus] Omeprazole 20 mg PO BID 01/26/17 08/01/17 Oxycodone HCl/Acetaminophen 1 tab PO BID PRN 01/26/17 08/01/17 [Percocet 10-325 mg Tablet] fentaNYL 50 MCG PATCH [Duragesic 50 mcg TOP Q72H 01/26/17 08/01/17 50mcg patch] Benzonatate [Tessalon] 200 mg PO TID PRN #24 capsule 01/28/17 08/01/17 Dicyclomine [Bentyl] 20 mg PO QID PRN #20 capsule 08/29/18 Ondansetron HCl [Zofran] 4 mg PO Q6H PRN #15 tablet 08/29/18 Bupropion HCl [Bupropion Xl] 09/19/18 Lidocaine Viscous 2% [Xylocaine 15 ml MM Q4H PRN #1 bottle 09/19/18 Viscous 2%] Metoclopramide [Reglan] 09/19/18 Pantoprazole Sodium 09/19/18 Primidone 09/19/18 Propranolol [Inderal] 09/19/18 raNITIdine [Zantac] 300 09/19/18 - Allergies Allergies/Adverse Reactions: Allergies Allergy/AdvReac Type Severity Reaction Status Date / Time gadopentetate dimeglumine * Allergy Mild Rash Verified 08/01/17 05:45 [From Magnjavadist] iodine Allergy Unknown Verified 08/29/18 16:23 - Social History Does the pt smoke?: No Smoking Status: Never smoker Does the pt drink ETOH?: No Does the pt have substance abuse?: No - Immunizations Immunizations are current?: Yes Immunizations: TDAP >10years/unknown PD ED PE NORMAL - Vitals Vital signs reviewed: Yes - General General: Alert and oriented X 3, Well developed/nourished, Other (appears to be in moderate painful distress) - HEENT HEENT: Moist mucous membranes - Neck Neck: Supple, no meningeal sign - Cardiac Cardiac: RRR, No murmur - Respiratory Respiratory: No respiratory distress, Clear bilaterally - Abdomen Abdomen: Soft, Non distended, Other (tender to palpation across upper abdomen and periumbilicus, no rebound or guarding) - Back Back: No CVA TTP - Derm Derm: Normal color, Warm and dry, No rash Results - Vitals Vitals: Vital Signs - 24 hr 09/19/18 09/19/18 09/19/18 19:43 20:35 22:17 Temperature 89.9 C H 36.8 C Heart Rate 86 86 Respiratory 18 16 Rate Blood Pressure 170/71 H 151/93 H O2 Saturation 96 98 Oxygen O2 Source Room air - Labs Labs: Laboratory Tests 09/19/18 09/19/18 19:34 19:34 WBC 8.8 RBC 4.99 Hgb 14.8 Hct 44.2 MCV 88.5 MCH 29.6 MCHC 33.5 RDW 14.0 Plt Count 146 MPV 8.5 Neut # (Auto) 5.5 Lymph # (Auto) 2.2 [place] # (Auto) 0.7 Eos # (Auto) 0.3 Baso # (Auto) 0.1 Absolute Nucleated RBC 0.01 Nucleated RBC % 0.1 Sodium 136 Potassium 3.2 L Chloride 100 L Carbon Dioxide 30 Anion Gap 6.0 BUN 12 Creatinine 0.7 Estimated GFR (MDRD) 85 L Glucose 108 H Calcium 9.5 Total Bilirubin 1.0 AST 60 H ALT 36 Alkaline Phosphatase 155 H Total Protein 7.5 Albumin 3.8 Globulin 3.7 Albumin/Globulin Ratio 1.0 Lipase 36 PD MEDICAL DECISION MAKING - ED course Complexity details: reviewed old records, reviewed results, re-evaluated patient, considered differential, d/w patient ED course: mild hypokalemia, otherwise unremarkable and nondiagnostic results of blood tests. She appears to be in NAD on reevaluation after GI cocktail and IV dilaudid, toradol, and reglan. Further emergent or inpatient testing not indicated at this time; pain is chronic and further emergent study unlikely to yield diagnostic result, but encouraged to return if worse and to f/u with PMD and GI next available appointment. Patient is comfortable with d/c, given second dose of dilaudid prior to d/c for residual pain. Departure - Departure Disposition: 01 Home, Self Care Clinical Impression: Vomiting Qualifiers: Vomiting type: unspecified Vomiting Intractability: non-intractable Nausea presence: with nausea Qualified Code(s): R11.2 - Nausea with vomiting, unspecified Abdominal pain Qualifiers: Abdominal location: upper abdomen, unspecified Qualified Code(s): R10.10 - Upper abdominal pain, unspecified Condition: Good Instructions: ED Abdominal Pain Unkn Cause, ED Nausea Vomiting Follow-Up: Melissa Van PA [Primary Care Provider] - Prescriptions: Lidocaine Viscous 2% [Xylocaine Viscous 2%] 15 ml MM Q4H PRN #1 bottle PRN Reason: Abdominal Pain Discharge Date/Time: 09/19/18 22:17
[2018-09-19] MEDS ORDERED: HYDROmorphone 1 MG/ML CARPUJECT IVP STA ×2 (20:30→21:55)
[2018-09-19] MEDS ORDERED: METOCLOPRAMIDE 10 MG/2 ML VIAL IVP STA (20:30)
[2018-09-19] MEDS ORDERED: LIDOCAINE VISCOUS 2% 15 ML UDC MM STA (20:31)
[2018-09-19] MEDS ORDERED: PHENobarb/HYOSCY/ATROPINE/SCOP 5 ML UDC PO STA (20:33)
[2018-09-19] MEDS ORDERED: MAG HYDROX/AL HYDROX/SIMETH 30 ML UDC PO STA (20:34)
[2018-09-19] MEDS ORDERED: KETOROLAC 60 MG/2 ML VIAL IVP STA (21:55)
[2018-09-19] MEDS ORDERED: POTASSIUM BICARB 25 MEQ TABLET PO STA (22:01)
[2018-09-19 22:18] VITALS: BP 151/93
== END 2018-09-19 22:17 | disposition home or self-care (01) ==
LOC: EDUNIT# → ED 19:19
DX: R11.2 Nausea with vomiting, unspecified (principal); R10.10 Upper abdominal pain, unspecified; E03.9 Hypothyroidism, unspecified
CPT/HCPCS: 36415; 80053; 83690; 85025; 96374; 96376; 99283; A9270; J1170; J2765

== ENCOUNTER 2019-04-08 15:45 | Outpatient (CLI) | payer MEDICARE, MEDICAID | END 2019-04-08 23:59 | disposition home or self-care (01) | LOC: LAB.WCP 15:45 | PROVIDERS: ATTEND Physician Assistant Medical | DX: R39.9 Unspecified symptoms and signs involving the genitourinary system (principal) | CPT/HCPCS: 87086 ==

== ENCOUNTER 2019-04-09 08:58 | Outpatient (CLI) | payer MEDICARE, MEDICAID ==
--- NOTE | 2019-04-09 17:33 | Mammography Report ---
Reason: MASTALGIA Procedure Date: 04/09/2019 Accession Number: [id number] / [id number] Procedure: QIAN - Diagnostic Dig Bilat CPT Code: FULL RESULT: EXAM: Diagnostic Dig Bilat DATE: 04/09/2019 10:02 AM CLINICAL HISTORY: Diagnostic examination. Right breast mastalgia along the lateral quadrants. TECHNIQUE: (B) - Bilateral CC and MLO views were obtained. Right ML images are obtained. COMPARISON: 03/21/2018 through 11/28/2013. PARENCHYMAL PATTERN: (A) - The breast(s) demonstrate(s) scattered fibroglandular densities. FINDINGS: No mammographic abnormalities identified in the area indicated as painful by the patient. There are no suspicious masses, calcifications, or areas of distortion. IMPRESSION: Negative examination. BI-RADS category 1. RECOMMENDATION: (ANNUAL) - Recommend routine annual screening mammography. BI-RADS CATEGORY: (1) - Negative. STANDARD QUALIFYING STATEMENTS: 1. This examination was not reviewed with the aid of Computer-Aided Detection (CAD). 2. A negative or benign imaging report should not preclude biopsy if clinically suspicious findings are present. 3. Dense breasts may obscure an underlying neoplasm. 4. This examination was reviewed with the aid of 3D breast imaging (tomosynthesis).
== END 2019-04-09 08:59 | disposition home or self-care (01) ==
LOC: DI 08:58
PROVIDERS: ATTEND Physician Assistant Medical
DX: N64.4 Mastodynia (principal); R39.9 Unspecified symptoms and signs involving the genitourinary system
CPT/HCPCS: 77066; 87086; G0279; 77062

== ENCOUNTER → 2019-05-15 | Outpatient (CLI) | payer MEDICARE, MEDICAID ==
[2019-05-15 19:32] LABS: BASOPHILS % (AUTO) 0.5 %; EOSINOPHILS # (AUTO) 0.2 10^3/uL (0.0-0.7); EOSINOPHILS % (AUTO) 2.8 %; HGB - HEMOGLOBIN 13.5 g/dL (12.0-16.0); LYMPHOCYTES # (AUTO) 1.9 10^3/uL (1.5-3.5); LYMPHOCYTES % (AUTO) 32.1 %; MEAN CORPUSCULAR HEMOGLOBIN 28.4 pg (27.0-31.0); MEAN CORPUSCULAR HGB CONC 32.3 g/dL (32.0-36.0); MEAN PLATELET VOLUME 10.9 fL (7.9-10.8); MONOCYTES # (AUTO) 0.5 10^3/uL (0.0-1.0); MONOCYTES % (AUTO) 7.5 %; NEUTROPHILS # (AUTO) 3.4 10^3/uL (1.5-6.6); NEUTROPHILS % (AUTO) 56.9 %; PLT - PLATELET COUNT 153 10^3/uL (130-450); RED BLOOD COUNT 4.75 10^6/uL (4.20-5.40); RED CELL DISTRIBUTION WIDTH 13.3 % (12.0-15.0)
[2019-05-15 19:34] LABS: ALBUMIN 3.6 g/dL (3.2-5.5); BILIRUBIN,TOTAL 0.9 mg/dL (0.2-1.0); CREATININE 0.7 mg/dL (0.4-1.0); TOTAL PROTEIN 7.3 g/dL (6.7-8.2)
[2019-05-15 20:14] LABS: INR 1.2 (0.8-1.2); PT - PROTHROMBIN TIME 13.1 secs (9.9-12.6)
== END ==
LOC: LAB.WCP 08:00
PROVIDERS: ATTEND Physician Assistant Medical
DX: K21.9 Gastro-esophageal reflux disease without esophagitis (principal); D69.6 Thrombocytopenia, unspecified; C22.0 Liver cell carcinoma
CPT/HCPCS: 36415; 80053; 85025; 85610

== ENCOUNTER 2019-07-10 08:00 | Outpatient (CLI) | payer MEDICARE, MEDICAID ==
[2019-07-10 18:40] LABS: CALCIUM 9.2 mg/dL (8.5-10.3); CREATININE 0.8 mg/dL (0.4-1.0)
[2019-07-10 18:41] LABS: MEAN CORPUSCULAR HEMOGLOBIN 29.1 pg (27.0-31.0); MEAN CORPUSCULAR HGB CONC 32.4 g/dL (32.0-36.0); MEAN CORPUSCULAR VOLUME 89.9 fL (81.0-99.0); MEAN PLATELET VOLUME 11.1 fL (7.9-10.8); RED BLOOD COUNT 4.46 10^6/uL (4.20-5.40); RED CELL DISTRIBUTION WIDTH 14.3 % (12.0-15.0); WHITE BLOOD COUNT 6.3 x10^3/uL (4.8-10.8)
== END 2019-07-10 08:01 | disposition home or self-care (01) ==
LOC: LAB.WCP 08:00
PROVIDERS: ATTEND Orthopaedic Surgery Orthopaedic Surgery of the Spine
DX: Z01.818 Encounter for other preprocedural examination (principal)
CPT/HCPCS: 36415; 80048; 85025; 85027

== ENCOUNTER 2019-09-24 15:36 | Outpatient (CLI) | payer MEDICARE, MEDICAID ==
[2019-09-24 18:13] LABS: BASOPHILS % (AUTO) 0.3 %; EOSINOPHILS % (AUTO) 0.2 %; HGB - HEMOGLOBIN 12.1 g/dL (12.0-16.0); LYMPHOCYTES # (AUTO) 1.2 10^3/uL (1.5-3.5); LYMPHOCYTES % (AUTO) 18.6 %; MEAN CORPUSCULAR HEMOGLOBIN 27.9 pg (27.0-31.0); MEAN CORPUSCULAR HGB CONC 32.4 g/dL (32.0-36.0); MEAN CORPUSCULAR VOLUME 86.4 fL (81.0-99.0); MEAN PLATELET VOLUME 10.8 fL (7.9-10.8); MONOCYTES # (AUTO) 0.2 10^3/uL (0.0-1.0); MONOCYTES % (AUTO) 3.7 %; NEUTROPHILS # (AUTO) 4.7 10^3/uL (1.5-6.6); NEUTROPHILS % (AUTO) 76.9 %; PLT - PLATELET COUNT 152 10^3/uL (130-450); RED BLOOD COUNT 4.33 10^6/uL (4.20-5.40); RED CELL DISTRIBUTION WIDTH 12.3 % (12.0-15.0); WHITE BLOOD COUNT 6.2 x10^3/uL (4.8-10.8)
[2019-09-24 18:30] LABS: ALBUMIN 3.5 g/dL (3.2-5.5); ALBUMIN/GLOBULIN RATIO 1.1 (1.0-2.2); BILIRUBIN,TOTAL 1.3 mg/dL (0.2-1.0); CREATININE 0.7 mg/dL (0.4-1.0); TOTAL PROTEIN 6.7 g/dL (6.7-8.2)
[2019-09-24 19:25] LABS: FREE T4 (FREE THYROXINE) 1.2 ng/dL (0.58-1.64)
== END 2019-09-24 23:59 | disposition home or self-care (01) ==
LOC: LAB.WCP 15:36
PROVIDERS: ATTEND Nurse Practitioner Family
DX: C22.0 Liver cell carcinoma (principal); R63.4 Abnormal weight loss
CPT/HCPCS: 36415; 80053; 84439; 84443; 85025

== ENCOUNTER 2019-11-06 08:00 | Outpatient (CLI) | payer MEDICARE, MEDICAID ==
[2019-11-06 18:45] LABS: CREATININE 0.6 mg/dL (0.4-1.0)
== END 2019-11-06 23:59 | disposition home or self-care (01) ==
LOC: LAB.WCP 08:00
PROVIDERS: ATTEND Physician Assistant Medical
DX: E87.6 Hypokalemia (principal)
CPT/HCPCS: 36415; 80048

== ENCOUNTER 2019-11-12 12:30 | Outpatient (CLI) | payer MEDICARE, MEDICAID ==
--- NOTE | 2019-11-12 18:24 | XRAY Report ---
Reason: SBO Procedure Date: 11/12/2019 Accession Number: [id number] / [id number] Procedure: WCP - Abdomen 2 View X-Ray CPT Code: 93175 Final Report FULL RESULT: EXAM: ABDOMEN RADIOGRAPHY EXAM DATE: 11/12/2019 12:30 PM. CLINICAL HISTORY: Bowel obstruction, abdominal pain COMPARISON: None. TECHNIQUE: 2 views. FINDINGS: Lung Bases: Unremarkable. Bowel Gas Pattern: No dilated small bowel is seen. There is moderate to large volume stool within right abdomen:. Free Air: None. Other: Lower lumbar fusion hardware is in place. IMPRESSION: 1. No radiographic evidence of bowel obstruction. 2. There is moderate to large volume stool within right colon. RADIA
== END 2019-11-12 23:59 | disposition home or self-care (01) ==
LOC: DI.WCP 12:30
PROVIDERS: ATTEND Physician Assistant Medical
DX: K56.609 Unspecified intestinal obstruction, unspecified as to partial versus complete obstruction (principal)
CPT/HCPCS: 74019

== ENCOUNTER 2019-11-19 14:47 | Outpatient (CLI) | payer MEDICARE, MEDICAID ==
[2019-11-19 18:32] LABS: BASOPHILS # (AUTO) 0.1 10^3/uL (0.0-0.1); BASOPHILS % (AUTO) 0.7 %; EOSINOPHILS # (AUTO) 0.2 10^3/uL (0.0-0.7); EOSINOPHILS % (AUTO) 3.5 %; LYMPHOCYTES # (AUTO) 2.5 10^3/uL (1.5-3.5); LYMPHOCYTES % (AUTO) 36.1 %; MEAN CORPUSCULAR HEMOGLOBIN 28.2 pg (27.0-31.0); MEAN CORPUSCULAR HGB CONC 31.8 g/dL (32.0-36.0); MEAN CORPUSCULAR VOLUME 88.7 fL (81.0-99.0); MEAN PLATELET VOLUME 11.2 fL (7.9-10.8); MONOCYTES # (AUTO) 0.6 10^3/uL (0.0-1.0); MONOCYTES % (AUTO) 8.4 %; NEUTROPHILS # (AUTO) 3.5 10^3/uL (1.5-6.6); NEUTROPHILS % (AUTO) 51.2 %; PLT - PLATELET COUNT 214 10^3/uL (130-450); RED BLOOD COUNT 4.96 10^6/uL (4.20-5.40); RED CELL DISTRIBUTION WIDTH 14.7 % (12.0-15.0); WHITE BLOOD COUNT 6.8 x10^3/uL (4.8-10.8)
[2019-11-19 19:09] LABS: ALBUMIN 3.8 g/dL (3.2-5.5); CALCIUM 9.7 mg/dL (8.5-10.3); CREATININE 0.7 mg/dL (0.4-1.0); TOTAL PROTEIN 7.5 g/dL (6.7-8.2)
== END 2019-11-19 23:59 | disposition home or self-care (01) ==
LOC: LAB.WCP 14:47
PROVIDERS: ATTEND Physician Assistant Medical
DX: K56.7 Ileus, unspecified (principal)
CPT/HCPCS: 36415; 80053; 85025

== ENCOUNTER 2019-11-27 14:33 | Outpatient (CLI) | payer MEDICARE, MEDICAID ==
--- NOTE | 2019-11-28 00:49 | XRAY Report ---
Reason: LUMBAR DISC DISORDER Procedure Date: 11/27/2019 Accession Number: [id number] / [id number] Procedure: XRN - Lumbar Spine 2 View CPT Code: Final Report FULL RESULT: EXAM: LUMBOSACRAL SPINE RADIOGRAPHY EXAM DATE: 11/27/2019 03:13 PM. CLINICAL HISTORY: LUMBAR DISC DISORDER. COMPARISONS: LUMBAR SPINE 2 VIEW 08/07/2018 10:29 AM. TECHNIQUE: 3 views. FINDINGS: Alignment: Grade 1 anterolisthesis is visualized at L2 on L3. Previously visualized scoliosis has been nearly completely corrected by interval fusion. Bones: Five [id number] lumbar vertebral bodies are present. The prior radiograph the patient has undergone posterior lumbar interbody fusion from L3-L5. Bilateral pedicle screws and stabilizing rods are in place posteriorly. Interbody devices are noted at L3-L4 and L4-L5. Disks: Moderate disk height loss is visualized at L2-L3. Interbody devices are again noted at L3-L4 and L4-L5. Facets: Not well visualized due to posterior hardware. Sacroiliac Joints: Unremarkable. Soft Tissues: Surgical clips are present in the right upper quadrant. Mild fecal stasis is noted. IMPRESSION: 1. Status post interval posterior interbody fusion from L3-L5. The hardware and interbody devices are intact. There is no surrounding lucency. Improved alignment of the lower lumbar spine. 2. Moderate degenerative change and mild anterolisthesis noted at L2-L3. RADIA
--- NOTE | 2019-11-28 00:52 | XRAY Report ---
Reason: OSTEOARTHRITIS Procedure Date: 11/27/2019 Accession Number: [id number] / [id number] Procedure: XRN - Cervical Spine 2 View CPT Code: Final Report FULL RESULT: EXAM: CERVICAL SPINE RADIOGRAPHY EXAM DATE: 11/27/2019 03:13 PM. CLINICAL HISTORY: OSTEOARTHRITIS. COMPARISONS: CERVICAL SPINE 2 VIEW 08/07/2018 10:17 AM. TECHNIQUE: 3 views. FINDINGS: Alignment: 3 mm anterolisthesis is again visualized at C3 on C4. Bones: The cervical vertebral bodies and posterior elements are well visualized from the skull base through C7-T1. Changes of ACDF are again noted at C5-C6-C7. The hardware is intact. Disks: There is increased disk height loss at the C4-C5 level with associated sclerosis and endplate osteophytosis. Facets: Moderate facet hypertrophy is visualized at the C4-C5 level, possibly slightly increased. Other upper cervical facet arthropathy appears unchanged. Soft Tissues: Normal. No prevertebral soft tissue swelling. The visualized lung apices are clear. IMPRESSION: 1. Status post C5-C6-C7 ACDF. Unchanged compared to prior radiographs. 2. Slight interval progression of cervical spondylosis at C4-C5 including possible slight progression of facet arthropathy. 3. Otherwise no significant change. RADIA
== END 2019-11-27 14:34 | disposition home or self-care (01) ==
LOC: DI.N 14:33
PROVIDERS: ATTEND Physician Assistant Medical
DX: M50.321 Other cervical disc degeneration at C4-C5 level (principal); M47.812 Spondylosis without myelopathy or radiculopathy, cervical region
CPT/HCPCS: 72040; 72100

== ENCOUNTER 2019-12-06 12:52 | Outpatient (CLI) | payer MEDICARE, MEDICAID ==
[2019-12-06] MEDS ORDERED: GADOBUTROL 7.5 MMOL/7.5 ML VIAL ONE (13:03)
[2019-12-06] MEDS ORDERED: GADOBUTROL 7.5 MMOL/7.5 ML VIAL IVP ONE (13:49)
--- NOTE | 2019-12-06 16:55 | MRI Report ---
Reason: ALTERED MENTAL STATUS, HEPATOCELLULAR CA Procedure Date: 12/06/2019 Accession Number: [id number] / [id number] Procedure: MRI - Brain W/WO CPT Code: Final Report FULL RESULT: EXAM: MRI BRAIN WITHOUT AND WITH CONTRAST EXAM DATE: 12/06/2019 02:12 PM. CLINICAL HISTORY: Altered mental status, hepatocellular cancer. COMPARISON: BRAIN W/WO 04/25/2017 1:09 PM. TECHNIQUE: Multiplanar, multisequence T1-weighted and fluid-sensitive MR sequences of the brain were performed before and after administration of intravenous contrast. Sequences optimized for routine evaluation. Other: None. IV Contrast: Gadavist. FINDINGS: No abnormal restricted diffusion signal or magnetic susceptibility is present in the brain parenchyma. No cerebellar tonsillar ectopia is seen. Anterior fusion hardware is seen at C4 and C5. Age-appropriate prominence of the ventricles and sulci is noted. There are punctate FLAIR hyperintensities in the cerebral hemisphere white matter bilaterally which are unchanged. No abnormal T2 or FLAIR hyperintense signal is present in the infratentorial brain. There is an expected flow void in the major intracranial vessels at the skull base. No enhancing mass is identified in the brain parenchyma. Expected enhancement is present in the major dural venous sinuses. No enhancing mass is present in either Meckel's cage. The cavernous sinuses enhance in symmetric fashion. IMPRESSION: 1. No intracranial metastatic disease. 2. The MRI of the brain is not significantly changed. 3. Again seen is small vessel ischemic change in the cerebral hemisphere white matter bilaterally RADIA
== END 2019-12-06 12:53 | disposition home or self-care (01) ==
LOC: DI 12:52
PROVIDERS: ATTEND Physician Assistant Medical
DX: R41.82 Altered mental status, unspecified (principal); I67.82 Cerebral ischemia; C22.0 Liver cell carcinoma; R44.3 Hallucinations, unspecified
CPT/HCPCS: 70553; A9585

== ENCOUNTER 2019-12-17 14:49 | Outpatient (CLI) | payer MEDICARE, MEDICAID ==
--- NOTE | 2019-12-18 01:49 | XRAY Report ---
Reason: SBO Procedure Date: 12/17/2019 Accession Number: [id number] / [id number] Procedure: XR - Abdomen 2 View X-Ray CPT Code: 46433 Final Report FULL RESULT: EXAM: ABDOMEN RADIOGRAPHY EXAM DATE: 12/17/2019 03:20 PM CLINICAL HISTORY: Recurrent constipation, small bowel obstruction. COMPARISON: ABDOMEN 2 VIEW 11/12/2019 11:50 AM, XR ACUTE ABDOMEN SERIES 07/04/2010 1:53 PM, XR ACUTE ABDOMEN SERIES 06/06/2008 9:42 PM, XR ABDOMEN SUPINE TECHNIQUE: 2 views. FINDINGS: Lung Bases: No significant consolidation. Bowel Gas Pattern: Moderate to large amount of retained colonic fecal matter. No abnormal dilated bowel loops to suggest obstruction. Free Air: No evidence of free intraperitoneal gas. Other: Lower lumbar spinal fixation hardware is noted. Prior cholecystectomy. IMPRESSION: Stable appearance with moderate to large amount of retained colon fecal material. RADIA
== END 2019-12-17 14:50 | disposition home or self-care (01) ==
LOC: DI 14:49
PROVIDERS: ATTEND Physician Assistant Medical
DX: K56.609 Unspecified intestinal obstruction, unspecified as to partial versus complete obstruction (principal)
CPT/HCPCS: 74019

== ENCOUNTER 2020-01-09 14:49 | Outpatient (CLI) | payer MEDICARE, MEDICAID | END 2020-01-09 14:50 | disposition critical access hospital (66) | LOC: EMS 14:49 | PROVIDERS: ATTEND Surgery | DX: R45.851 Suicidal ideations (principal); R44.0 Auditory hallucinations | CPT/HCPCS: A0425; A0429 ==

== ENCOUNTER 2020-01-09 15:13 | Emergency (ER) | payer MEDICARE, MEDICAID ==
--- NOTE | 2020-01-09 15:22 | ED Physician Documentation ---
PD HPI MHE - Stated complaint Stated Complaint: MHE - History obtained from History obtained from: Patient (64-year-old woman presents by ambulance for what sounds like delusions and hallucinations. She thinks there is somebody coming over to her house and bothering her. She went to the police department today to report this but they felt it was psychiatric and referred her here for further evaluation and treatment. Of note she has a history of hepatocellular carcinoma but had an MRI almost a month ago to the day of her brain without acute findings. She denies drug or alcohol use. She has a long history of depression and is taking an antidepressant but she does not know which one. She states that she is hopeless but not overtly suicidal and no plans.) Review of Systems Ten Systems: 10 systems reviewed and negative Constitutional: denies: Fever, Chills Eyes: denies: Loss of vision, Decreased vision Ears: denies: Loss of hearing, Ear pain Nose: denies: Rhinorrhea / runny nose, Congestion PD PAST MEDICAL HISTORY - Past Medical History Past Medical History: Yes Cardiovascular: Other Respiratory: Asthma, COPD Endocrine/Autoimmune: HyPOthyroidism GI: Hepatitis : None HEENT: None Psych: Depression, Anxiety Musculoskeletal: Osteoarthritis Derm: None - Past Surgical History Past Surgical History: Yes 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 HEENT: Tonsil/Adenoidectomy - Present Medications Home Medications: Ambulatory Orders Medication Instructions Recorded Confirmed Citalopram Hydrobromide [Celexa] 60 mg PO DAILY 08/28/14 08/01/17 Furosemide 40 mg PO DAILY 08/28/14 08/01/17 Hydroxyzine HCl 25 mg PO QPM 08/28/14 08/01/17 Levothyroxine [Synthroid] 112 mcg PO DAILY 08/28/14 08/01/17 Spironolactone 25 mg PO BID 08/28/14 08/01/17 Zolpidem Tartrate [Ambien] 5 mg PO QPM PRN 08/28/14 08/01/17 Albuterol 2.5 mg INH Q4H PRN 01/26/17 08/01/17 Albuterol Sulfate [Proair Hfa 2 puffs INH Q4H PRN 01/26/17 08/01/17 Inhaler] Cyclobenzaprine [Flexeril] 10 mg PO TID PRN 01/26/17 08/01/17 Duloxetine HCl 90 mg PO DAILY 01/26/17 08/01/17 Fluticasone/Salmeterol [Advair 1 puffs INH BID 01/26/17 08/01/17 100-50 Diskus] Omeprazole 20 mg PO BID 01/26/17 08/01/17 Oxycodone HCl/Acetaminophen 1 tab PO BID PRN 01/26/17 08/01/17 [Percocet 10-325 mg Tablet] fentaNYL 50 MCG PATCH [Duragesic 50 mcg TOP Q72H 01/26/17 08/01/17 50mcg patch] Benzonatate [Tessalon] 200 mg PO TID PRN #24 capsule 01/28/17 08/01/17 Dicyclomine [Bentyl] 20 mg PO QID PRN #20 capsule 08/29/18 Ondansetron HCl [Zofran] 4 mg PO Q6H PRN #15 tablet 08/29/18 Bupropion HCl [Bupropion Xl] 09/19/18 Lidocaine Viscous 2% [Xylocaine 15 ml MM Q4H PRN #1 bottle 09/19/18 Viscous 2%] Metoclopramide [Reglan] 09/19/18 Pantoprazole Sodium 09/19/18 Primidone 09/19/18 Propranolol [Inderal] 09/19/18 raNITIdine [Zantac] 300 09/19/18 - Allergies Allergies/Adverse Reactions: Allergies Allergy/AdvReac Type Severity Reaction Status Date / Time iodine Allergy Unknown Verified 01/09/20 15:33 olanzapine [From Zyprexa] Allergy Unknown Verified 01/09/20 15:33 contrast dye Allergy Unknown Uncoded 09/26/18 09:40 - Social History Does the pt smoke?: No Smoking Status: Never smoker Does the pt drink ETOH?: No Does the pt have substance abuse?: No - Family History Family history: reports: Non contributory - Immunizations Immunizations are current?: Yes Immunizations: TDAP >10years/unknown PD ED PE NORMAL - Vitals Vital signs reviewed: Yes - General General: Alert and oriented X 3, Other (She is tearful with poor eye contact) - HEENT HEENT: PERRL, EOMI - Neck Neck: Supple, no meningeal sign, No bony TTP - Cardiac Cardiac: RRR, No murmur - Respiratory Respiratory: No respiratory distress, Clear bilaterally - Abdomen Abdomen: Soft, Non tender - Back Back: No CVA TTP, No spinal TTP - Derm Derm: Normal color, Warm and dry - Extremities Extremities: No edema, No calf tenderness / cord - Neuro Neuro: Alert and oriented X 3, No motor deficit, No sensory deficit, Normal speech Results - Vitals Vitals: Vital Signs - 24 hr 01/09/20 15:15 Temperature 36.5 C Heart Rate 72 Respiratory 16 Rate Blood Pressure 155/71 H O2 Saturation 100 Oxygen O2 Source Room air - Labs Labs: Laboratory Tests 01/09/20 01/09/20 01/09/20 15:35 15:35 15:35 WBC 5.7 RBC 4.68 Hgb 13.7 Hct 40.9 MCV 87.4 MCH 29.3 MCHC 33.5 RDW 13.7 Plt Count 138 MPV 9.9 Neut # (Auto) 4.0 Lymph # (Auto) 1.3 L [place] # (Auto) 0.3 Eos # (Auto) 0.2 Baso # (Auto) 0.0 Absolute Nucleated RBC 0.00 Nucleated RBC % 0.0 PT 13.6 H INR 1.2 Sodium 141 Potassium 3.9 Chloride 107 Carbon Dioxide 27 Anion Gap 7.0 BUN 18 Creatinine 0.5 Estimated GFR (MDRD) 125 Glucose 134 H Calcium 9.4 Total Bilirubin 1.1 H AST 46 H ALT 22 Alkaline Phosphatase 136 H Total Protein 7.5 Albumin 3.9 Globulin 3.6 Albumin/Globulin Ratio 1.1 Lipase 35 TSH Thyroxine (T4) Free T3 pg/mL HCG, Quant Urine Color Urine Clarity Urine pH Ur Specific [place] Urine Protein Urine Glucose (UA) Urine Ketones Urine Occult Blood Urine Nitrite Urine Bilirubin Urine Urobilinogen Ur Leukocyte Esterase Ur Microscopic Review Urine Culture Comments Salicylates < 6.0 Urine Opiates Screen Ur Oxycodone Screen Urine Methadone Screen Ur Propoxyphene Screen Acetaminophen < 10 L Ur Barbiturates Screen Ur Tricyclics Screen Ur Phencyclidine Scrn Ur Amphetamine Screen U Methamphetamines Scrn U Benzodiazepines Scrn Urine Cocaine Screen U Cannabinoids Screen Ethyl Alcohol < 5.0 01/09/20 01/09/20 01/09/20 15:35 15:35 15:35 WBC RBC Hgb Hct MCV MCH MCHC RDW Plt Count MPV Neut # (Auto) Lymph # (Auto) [place] # (Auto) Eos # (Auto) Baso # (Auto) Absolute Nucleated RBC Nucleated RBC % PT INR Sodium Potassium Chloride Carbon Dioxide Anion Gap BUN Creatinine Estimated GFR (MDRD) Glucose Calcium Total Bilirubin AST ALT Alkaline Phosphatase Total Protein Albumin Globulin Albumin/Globulin Ratio Lipase TSH < 0.08 L Thyroxine (T4) 9.96 Free T3 pg/mL 4.56 H HCG, Quant 6.54 Urine Color Urine Clarity Urine pH Ur Specific [place] Urine Protein Urine Glucose (UA) Urine Ketones Urine Occult Blood Urine Nitrite Urine Bilirubin Urine Urobilinogen Ur Leukocyte Esterase Ur Microscopic Review Urine Culture Comments Salicylates Urine Opiates Screen Ur Oxycodone Screen Urine Methadone Screen Ur Propoxyphene Screen Acetaminophen Ur Barbiturates Screen Ur Tricyclics Screen Ur Phencyclidine Scrn Ur Amphetamine Screen U Methamphetamines Scrn U Benzodiazepines Scrn Urine Cocaine Screen U Cannabinoids Screen Ethyl Alcohol 01/09/20 16:10 WBC RBC Hgb Hct MCV MCH MCHC RDW Plt Count MPV Neut # (Auto) Lymph # (Auto) [place] # (Auto) Eos # (Auto) Baso # (Auto) Absolute Nucleated RBC Nucleated RBC % PT INR Sodium Potassium Chloride Carbon Dioxide Anion Gap BUN Creatinine Estimated GFR (MDRD) Glucose Calcium Total Bilirubin AST ALT Alkaline Phosphatase Total Protein Albumin Globulin Albumin/Globulin Ratio Lipase TSH Thyroxine (T4) Free T3 pg/mL HCG, Quant Urine Color YELLOW Urine Clarity CLEAR Urine pH 6.5 Ur Specific [place] 1.020 Urine Protein NEGATIVE Urine Glucose (UA) NEGATIVE Urine Ketones NEGATIVE Urine Occult Blood NEGATIVE Urine Nitrite NEGATIVE Urine Bilirubin NEGATIVE Urine Urobilinogen 0.2 (NORMAL) Ur Leukocyte Esterase NEGATIVE Ur Microscopic Review NOT INDICATED Urine Culture Comments NOT INDICATED Salicylates Urine Opiates Screen NEGATIVE Ur Oxycodone Screen NEGATIVE Urine Methadone Screen NEGATIVE Ur Propoxyphene Screen NEGATIVE Acetaminophen Ur Barbiturates Screen NEGATIVE Ur Tricyclics Screen POSITIVE H Ur Phencyclidine Scrn NEGATIVE Ur Amphetamine Screen NEGATIVE U Methamphetamines Scrn NEGATIVE U Benzodiazepines Scrn NEGATIVE Urine Cocaine Screen NEGATIVE U Cannabinoids Screen NEGATIVE Ethyl Alcohol PD MEDICAL DECISION MAKING - ED course ED course: 64-year-old woman presents by ambulance with what seems like a psychosis. No medical cause was found on work-up. Note the TSH was low but her actual thyroid hormones were fairly close to normal. Seen by the designated crisis responder and a bed was arranged for her at [facility]. [facility] were completed. She is stable for transfer. Departure - Departure Disposition: 65 Psych Hosp/Unit DC/Xfer Clinical Impression: Psychosis Qualifiers: Psychosis type: unspecified psychosis type Qualified Code(s): F29 - Unspecified psychosis not due to a substance or known physiological condition Condition: Stable
[2020-01-09 15:43] LABS: BASOPHILS % (AUTO) 0.4 %; EOSINOPHILS # (AUTO) 0.2 10^3/uL (0.0-0.7); EOSINOPHILS % (AUTO) 3.3 %; HGB - HEMOGLOBIN 13.7 g/dL (12.0-16.0); LYMPHOCYTES # (AUTO) 1.3 10^3/uL (1.5-3.5); LYMPHOCYTES % (AUTO) 21.9 %; MEAN CORPUSCULAR HEMOGLOBIN 29.3 pg (27.0-31.0); MEAN CORPUSCULAR HGB CONC 33.5 g/dL (32.0-36.0); MEAN CORPUSCULAR VOLUME 87.4 fL (81.0-99.0); MEAN PLATELET VOLUME 9.9 fL (7.9-10.8); MONOCYTES # (AUTO) 0.3 10^3/uL (0.0-1.0); MONOCYTES % (AUTO) 4.9 %; NEUTROPHILS % (AUTO) 69.3 %; PLT - PLATELET COUNT 138 10^3/uL (130-450); RED BLOOD COUNT 4.68 10^6/uL (4.20-5.40); RED CELL DISTRIBUTION WIDTH 13.7 % (12.0-15.0); WHITE BLOOD COUNT 5.7 x10^3/uL (4.8-10.8)
[2020-01-09 15:47] LABS: INR 1.2 (0.8-1.2); PT - PROTHROMBIN TIME 13.6 secs (9.9-12.6)
[2020-01-09 15:58] LABS: ACETAMINOPHEN < 10 ug/mL (10-30); ALBUMIN 3.9 g/dL (3.2-5.5); ALBUMIN/GLOBULIN RATIO 1.1 (1.0-2.2); ALKALINE PHOSPHATASE 136 IU/L (42-121); ALT ALANINE AMINOTRANSFERASE 22 IU/L (10-60); AST ASPARTATE AMINOTRANSFERASE 46 IU/L (10-42); BILIRUBIN,TOTAL 1.1 mg/dL (0.2-1.0); BUN - BLOOD UREA NITROGEN 18 mg/dL (6-20); CALCIUM 9.4 mg/dL (8.5-10.3); CARBON DIOXIDE - CO2 27 mmol/L (21-32); CHLORIDE 107 mmol/L (101-111); CREATININE 0.5 mg/dL (0.4-1.0); GLUCOSE 134 mg/dL (70-100); LIPASE 35 U/L (22-51); SALICYLATE < 6.0 mg/dL; SODIUM 141 mmol/L (135-145); TOTAL PROTEIN 7.5 g/dL (6.7-8.2)
[2020-01-09 16:15] LABS: MUDS CUTOFF CONCENTRATIONS CUTOFF CONC BELOW:
[2020-01-09 16:18] LABS: BILIRUBIN,URINE NEGATIVE (NEGATIVE); GLUCOSE, URINE (UA) NEGATIVE (NEGATIVE); KETONES,URINE (UA) NEGATIVE (NEGATIVE); LEUKOCYTE ESTERASE, URINE NEGATIVE (NEGATIVE); NITRITE,URINE NEGATIVE (NEGATIVE); OCCULT BLOOD,URINE NEGATIVE (NEGATIVE); PH,URINE 6.5 PH (5.0-7.5); PROTEIN,URINE NEGATIVE (NEGATIVE); UROBILINOGEN,URINE 0.2 (NORMAL) E.U./dL (NORMAL)
[2020-01-09 16:19] LABS: CLARITY,URINE CLEAR (CLEAR)
[2020-01-09 16:29] LABS: AMPHETAMINE SCREEN,URINE NEGATIVE (NEGATIVE); BENZODIAZEPINES SCREEN, URINE NEGATIVE (NEGATIVE); COCAINE SCREEN URINE NEGATIVE (NEGATIVE); METHADONE SCREEN, URINE NEGATIVE (NEGATIVE); METHAMPHETAMINES SCREEN, URINE NEGATIVE (NEGATIVE); OPIATE SCREEN, URINE NEGATIVE (NEGATIVE); OXYCODONE SCREEN, URINE NEGATIVE (NEGATIVE); PROPOXYPHENE SCREEN, URINE NEGATIVE (NEGATIVE); TRICYCLIC ANTIDEPRESSANT,URINE POSITIVE (NEGATIVE)
[2020-01-09 16:46] LABS: T4 (THYROXINE) 9.96 ug/dL (6.09-12.23)
[2020-01-09 16:51] LABS: FREE T3 4.56 pg/mL (2.5-3.9)
[2020-01-09] MEDS ORDERED: risperiDONE 0.25 MG TABLET PO STA (17:21)
[2020-01-09] MEDS ORDERED: LORazepam 1 MG TABLET PO STA (18:46)
[2020-01-10 00:33] VITALS: BP 100/51
== END 2020-01-10 00:40 ==
LOC: EDUNIT# → ED 15:13
DX: F29 Unspecified psychosis not due to a substance or known physiological condition (principal); F32.9 Major depressive disorder, single episode, unspecified; C22.0 Liver cell carcinoma
CPT/HCPCS: 36415; 80053; 81003; 83690; 84436; 84443; 84481; 84702; 85025; 85610; A9270; J8499; 80306; 80307; 80320; 80329; 81001; 87086; 99283; 99285

== ENCOUNTER 2020-01-10 10:03 | Emergency (ER) | payer MEDICARE, MEDICAID ==
--- NOTE | 2020-01-10 10:45 | ED Physician Documentation ---
PD HPI MHE - Stated complaint Stated Complaint: MHE - Chief complaint Chief Complaint: MHE - History obtained from History obtained from: Patient, EMS - History of Present Illness Primary symptom: Psychosis, Depression Timing - onset: How many weeks ago (1) Contributing factors: Other (health concerns) Similar symptoms before: Diagnosis (depression) Recently seen: Clinic, Emergency Dept, Transferred - Additional information Additional information: 64-year-old female with a history of asthma hypothyroidism hepatitis and anxiety and depression has recently been diagnosed with hepatocellular carcinoma and she has become depressed and angry. Yesterday she called the police department stating someone was stalking her and this was a clear delusion. She came to the emergency department was evaluated and medically cleared for admission to [facility]. She was transferred there and this morning she is being transferred back as they are not able to care for her medical problems that include the use of a nebulizer and a fentanyl patch. Patient states that she has not had to use her nebulizer in months and is not currently ill. She uses a fentanyl patch for chronic pain on her right side. She states that she feels somewhat better today than she did yesterday and that no specific intervention has been done new no new medications have been started. She still feels that further treatment would be helpful. Patient last saw her primary care doctor for swelling in her hands and feet no specific interventions were done at that time. She is on Lasix and Aldactone. Review of Systems Constitutional: denies: Fever, Chills, Myalgias, Fatigue Eyes: denies: Decreased vision Ears: denies: Ear pain Nose: denies: Rhinorrhea / runny nose, Congestion Throat: denies: Sore throat Cardiac: denies: Chest pain / pressure, Palpitations Respiratory: denies: Dyspnea, Cough GI: reports: Abdominal Pain (chronic), Constipation : denies: Dysuria, Frequency Skin: denies: Rash Musculoskeletal: denies: Neck pain, Back pain, Extremity pain Neurologic: denies: Generalized weakness, Focal weakness, Numbness, Difficulty speaking Psychiatric: reports: Depressed, Delusions. denies: Suicidal PD PAST MEDICAL HISTORY - Past Medical History Past Medical History: No Cardiovascular: Other Respiratory: Asthma, COPD Neuro: Tremors Endocrine/Autoimmune: HyPOthyroidism GI: GERD, Hepatitis BUILDING MANAGER: None : Retention, Incontinence, Kidney stones HEENT: Chronic vision loss Psych: Depression, Anxiety, Panic attacks Musculoskeletal: Osteoarthritis, Chronic back pain Derm: None - Past Surgical History Past Surgical History: Yes General: Cholecystectomy Ortho: Spine surgery /BUILDING MANAGER: Hysterectomy HEENT: Tonsil/Adenoidectomy - Present Medications Home Medications: Ambulatory Orders Medication Instructions Recorded Confirmed Furosemide 20 mg PO DAILY 08/28/14 01/10/20 Levothyroxine [Synthroid] 112 mcg PO DAILY 08/28/14 01/10/20 Spironolactone 25 mg PO BID 08/28/14 01/10/20 Pantoprazole Sodium 40 mg ORAL DAILY 09/19/18 01/10/20 Propranolol [Inderal] 10 mg ORAL DAILY 09/19/18 01/10/20 Albuterol Sulfate [Proair 2 puffs IH Q4HR PRN 01/10/20 01/10/20 Digihaler] Famotidine 40 mg PO DAILY 01/10/20 01/10/20 Fluticasone [Flonase] 2 sprays CAROLYN BID 01/10/20 01/10/20 Fluticasone/Salmeterol [Advair 2 puffs IH DAILY 01/10/20 01/10/20 500-50 Diskus] Furosemide 20 mg PO DAILY 01/10/20 01/10/20 Ondansetron HCl [Zofran] 8 mg PO Q6H PRN 01/10/20 01/10/20 Potassium Chloride 10 meq PO DAILY 01/10/20 01/10/20 Propranolol [Inderal] 20 mg PO DAILY PM 01/10/20 01/10/20 Quetiapine Fumarate 100 mg PO DAILY PM 01/10/20 01/10/20 fentaNYL [Fentanyl 37.5mcg patch] 37.5 mcg TOP ONCE 01/10/20 01/10/20 hydrOXYzine HCL [Hydroxyzine HCl] 50 mg PO DAILY PM 01/10/20 01/10/20 - Allergies Allergies/Adverse Reactions: Allergies Allergy/AdvReac Type Severity Reaction Status Date / Time iodine Allergy Unknown Verified 01/10/20 10:52 olanzapine [From Zyprexa] Allergy Unknown Verified 01/10/20 10:52 contrast dye Allergy Unknown Uncoded 09/26/18 09:40 - Social History Does the pt smoke?: No Smoking Status: Never smoker Does the pt drink ETOH?: No Does the pt have substance abuse?: No - Immunizations Immunizations are current?: Yes Immunizations: TDAP >10years/unknown - POLST Patient has POLST: No PD ED PE NORMAL - Vitals Vital signs reviewed: Yes (normal) - General General: Alert and oriented X 3, No acute distress, Well developed/nourished - HEENT HEENT: Atraumatic, PERRL, EOMI, Ears normal, Moist mucous membranes, Pharynx benign, Dentition benign - Neck Neck: Supple, no meningeal sign, No bony TTP, No JVD - Cardiac Cardiac: RRR, No murmur - Respiratory Respiratory: No respiratory distress, Clear bilaterally - Abdomen Abdomen: Soft, Non tender - Back Back: No CVA TTP, No spinal TTP - Derm Derm: Normal color, Warm and dry, No rash - Extremities Extremities: No deformity, No edema - Neuro Neuro: Alert and oriented X 3, it coordinator 2-12 intact, No motor deficit, No sensory deficit, Normal speech Eye Opening: Spontaneous Motor: Obeys Commands Verbal: Oriented GCS Score: 15 - Psych Psych: Normal mood, Normal affect Results - Vitals Vitals: Vital Signs - 24 hr 01/11/20 01/11/20 01/12/20 14:00 18:10 06:32 Temperature 36.8 C 36.6 C Heart Rate 78 101 H 71 Respiratory 16 20 16 Rate Blood Pressure 121/65 139/75 H 97/50 L O2 Saturation 100 97 99 01/12/20 01/12/20 10:05 11:54 Temperature 36.8 C 36.5 C Heart Rate 88 83 Respiratory 16 16 Rate Blood Pressure 128/64 129/66 O2 Saturation 98 98 Oxygen O2 Source Room air - Labs Labs: Laboratory Tests 01/11/20 16:30 Coronavirus (PCR) NEGATIVE PD MEDICAL DECISION MAKING - ED course Complexity details: reviewed old records, reviewed results, re-evaluated patient, considered differential, d/w patient ED course: 64-year-old female with a history of hepatocellular carcinoma has some issues with anger and depression and she has become acutely psychotic. She is having some issues with delusions and inpatient therapy has been arranged and the patient has been returned to our hospital without the patient being treated. She was deemed too medically complex for their unit. We are in the process of attempting to find placement for this patient and we have received the recommendation from the psychiatrist on tele-psych to place the patient on Seroquel in an escalating dose. cut in worker is continuing to work on placement. The patient has done well with her escalating dose of Seroquel. She has less symptoms daily. She still will benefit from inpatient therapy. She is still having some delusional behavior. Arrangements have been made for the patient to be transferred to [place] to a psychiatric facility. Departure - Departure Disposition: 65 Psych Hosp/Unit DC/Xfer Clinical Impression: Depression Qualifiers: Depression Type: major depressive disorder Major depression recurrence: recurrent Active/Remission status: currently active Major depression episode severity: severe Psychotic features: with psychotic features Qualified Code(s): F33.3 - Major depressive disorder, recurrent, severe with psychotic symptoms Condition: Fair
--- NOTE | 2020-01-10 18:14 | ED Physician Documentation ---
ED Addendum - Addendum Addendum: 01/10/20 18:14 DCR inquired about what type of carcinoma she has and current treatment for same. Is hepatocellular carcinoma, I am not sure of the stage. She is not undergoing active treatment for this. She had an MRI of her brain within the last couple of months with which was without evidence of cranial metastases. 01/10/20 22:11 Subsequent to that, the patient was seen by tele-psychiatry consultation who recommended increasing her Seroquel to 25 mg in the morning, 125 mg if at night. If she is still here on Sunday, he recommended at that point increasing her morning Seroquel to 50 mg in the evening Seroquel to 150 mg. For him, the patient was amenable to psychiatric hospitalization. The DCR in the interim has had to walk away though noting that could not find a bed for the patient tonight. 1 of the hang-ups was the fentanyl patch. I mentioned that I would be happy to change her fentanyl patch to an equivalent dose of an oral opioid. 1 option would be 45 mg of MS Contin twice daily, or 30 mg of OxyContin twice daily. I did order the evening dose of Seroquel at 125 mg. She is still psychotic, we will keep her in the emergency department tonight to continue to try to find bed placement in the morning. She is not currently detained though.
[2020-01-10] MEDS ORDERED: risperiDONE 0.25 MG TABLET PO STA (18:57)
[2020-01-10] MEDS ORDERED: LORazepam 1 MG TABLET PO STA (19:35)
[2020-01-10] MEDS ORDERED: haloperidoL 1 MG TABLET PO STA (20:51)
[2020-01-10] MEDS ORDERED: HALOPERIDOL 5 MG/ML VIAL IM STA (20:54)
[2020-01-10] MEDS ORDERED: QUEtiapine 100 MG TABLET PO STA (22:07)
[2020-01-10] MEDS ORDERED: QUEtiapine 25 MG TABLET PO STA ×2 (22:07→22:16)
--- NOTE | 2020-01-10 22:26 | TELEPSYCH PHYS NOTE ---
Telepsych Note - CHIEF COMPLAINT/HX OF PRESENT ILLNESS Cheif Complaint and History of Present Illness: Pt seen by televideo with help from the onsite staff. Pt is a 64-year-old female with a history of depression and anxiety. She presented to the ER yesterday complaining of paranoid delusions and auditory hallucinations. She was sent to a nearby psychiatric hospital but returned to the ER because she was determined to be too medically acute (pt prescribed Fentanyl patch and nebulizer). She was sent back to the ER. When seen by psychiatry, the pt stated that she has been hearing a female voice make derogatory comments about her for several weeks. This has lead to suicidal thoughts with a plan to overdose on pi lls. - SI/HI/SELF HARM SI/HI/Self Harm Text (Current or History of):: no prior attempts - VIOLENCE/LEGAL/COLLATERAL Violence - Legal - Collateral: Violence: none Legal: none Collateral: none available - PSYCHIATRIC HX/TREATMENT HX Psychiatric: Depression, Anxiety, Panic attacks Psychiatric/Treatment Hx Other: Hx of depression. No prior inpatient admissions. Sees PCP for psych meds - MEDICAL HX Does the pt have a hx of MRSA?: Yes Neurological History: Tremors Eyes, Ears, Nose, Throat: Chronic vision loss Cardiovascular: Other Respiratory: Asthma, COPD Skin: None Endocrine/Autoimmune: HyPOthyroidism Gastrointestinal: GERD, Hepatitis Is Patient ?: No Urinary: Retention, Incontinence, Kidney stones Musculoskeletal: Osteoarthritis, Chronic back pain Blood Disorders: None - SURGICAL HX General: Cholecystectomy Orthopedic: Spine surgery Gynecologic: Hysterectomy - HOME MEDICATIONS Home Meds (as last confirmed): Patient History Medication Instructions Recorded Confirmed Furosemide 20 mg PO DAILY 08/28/14 01/10/20 Levothyroxine [Synthroid] 112 mcg PO DAILY 08/28/14 01/10/20 Spironolactone 25 mg PO BID 08/28/14 01/10/20 Pantoprazole Sodium 40 mg ORAL DAILY 09/19/18 01/10/20 Propranolol [Inderal] 10 mg ORAL DAILY 09/19/18 01/10/20 Albuterol Sulfate [Proair 2 puffs IH Q4HR PRN 01/10/20 01/10/20 Digihaler] Famotidine 40 mg PO DAILY 01/10/20 01/10/20 Fluticasone [Flonase] 2 sprays CAROLYN BID 01/10/20 01/10/20 Fluticasone/Salmeterol [Advair 2 puffs IH DAILY 01/10/20 01/10/20 500-50 Diskus] Furosemide 20 mg PO DAILY 01/10/20 01/10/20 Ondansetron HCl [Zofran] 8 mg PO Q6H PRN 01/10/20 01/10/20 Potassium Chloride 10 meq PO DAILY 01/10/20 01/10/20 Propranolol [Inderal] 20 mg PO DAILY PM 01/10/20 01/10/20 Quetiapine Fumarate 100 mg PO DAILY PM 01/10/20 01/10/20 fentaNYL [Fentanyl 37.5mcg patch] 37.5 mcg TOP ONCE 01/10/20 01/10/20 hydrOXYzine HCL [Hydroxyzine HCl] 50 mg PO DAILY PM 01/10/20 01/10/20 - ALLERGIES Allergies (as last confirmed): Allergies Allergy/AdvReac Type Severity Reaction Status Date / Time iodine Allergy Unknown Verified 01/10/20 10:52 olanzapine [From Zyprexa] Allergy Unknown Verified 01/10/20 10:52 contrast dye Allergy Unknown Uncoded 09/26/18 09:40 - FAMILY PSYCH/SUICIDE/SOCIAL HX-MENTAL Family - Suicide - Social Hx and Mental Status Exam: Family Psychiatric History: daughter-depression. Social History: , lives with aunt/uncle who report that they legally adopted her 7 years prior. Employment: retired Education: 10th grade education Stressors: see HPI History: none Abuse: patient denies Mental Status Examination: Attitude and behavior: cooperative Speech: WNL Affect and mood: sad affect and mood Association and thought processes: linear Thought content: +paranoid delusions, + SI, no HI Perception: + auditory hallucinations Sensorium, memory, and orientation: AAOx3 Intellectual functioning: average Insight and judgment: impaired - PATIENT PROBLEM LIST (1) MDD (major depressive disorder), recurrent episode, severe Qualifiers: Psychotic features: with psychotic features Qualified Code(s): F33.3 - Major depressive disorder, recurrent, severe with psychotic symptoms Impression: The pt is a 64-year-old female with a history of depression and anxiety. She currently presents with psychotic symptoms and suicidal thoughts. She was recently sent to a psychiatric hospital yesterday, but the pt returned due to being on a fentanyl patch. Pt was determined to be too medically acute for the facility. The case was discussed with the ER physician who is agreeable to convert the patient from a fentanyl patch to oral opiate pain medication in order to make her more amenable to the psychiatric hospital. The pt is still in need of inpatient psychiatric stabilization. - TREATMENT/PHARMACOLOGICAL RECOMMENDATION Treatment - Pharmacological - Therapy Recommendations: Pt requires acute inpt psychiatric admission for safety, stabilization and treatment. Start Quetiapine 25 mg QAM and 125 mg QPM. If the patient is still in the ER on 01/11, then start Quetiapine 50 mg QAM and 150 mg QPM. Continue Hydroxyzine 50 mg QPM. - TIME SPENT & PROVIDER LOCATION Telepsych consultation conducted via videoconferencing: Yes List names and roles of persons who participated in consult: Ashutosh Burt MD Telepsych Provider Location: [place] Time Telepsych consult began: 00:30 Time Telepsych consult completed: 01:10
[2020-01-11] MEDS ORDERED: QUEtiapine 25 MG TABLET PO STA ×2 (07:14→20:35)
[2020-01-11] MEDS ORDERED: polyethylene glycoL 3350 17 GM PACKET PO STA (17:06)
[2020-01-11] MEDS ORDERED: hydrOXYzine PAMOATE 25 MG CAPSULE PO STA (20:35)
[2020-01-11] MEDS ORDERED: QUEtiapine 100 MG TABLET PO STA (20:35)
[2020-01-11] MEDS ORDERED: LEVOTHYROXINE 112 MCG TABLET PO STA (20:36)
[2020-01-12] MEDS ORDERED: QUEtiapine 25 MG TABLET PO STA (07:51)
[2020-01-12] MEDS ORDERED: polyethylene glycoL 3350 17 GM PACKET PO STA (07:59)
[2020-01-12 11:55] VITALS: BP 129/66
== END 2020-01-12 12:13 ==
LOC: EDUNIT# → ED 10:03 → EEVIPCON 10:03 → ED 01-12 12:13
DX: F33.3 Major depressive disorder, recurrent, severe with psychotic symptoms (principal); G89.29 Other chronic pain; C22.0 Liver cell carcinoma; F29 Unspecified psychosis not due to a substance or known physiological condition; Z75.1 Person awaiting admission to adequate facility elsewhere
CPT/HCPCS: 36415; 80053; 81003; 83690; 84436; 84443; 84481; 84702; 85025; 85610; 93005; 96372; 99283; 99285; A9270; G0425; J8499; U0004; 80306; 80307; 80320; 80329; 81001; 81599; 87086

== ENCOUNTER 2020-03-09 12:48 | Outpatient (CLI) | payer MEDICARE, MEDICAID ==
[2020-03-09 18:32] LABS: BASOPHILS % (AUTO) 0.2 %; EOSINOPHILS # (AUTO) 0.2 10^3/uL (0.0-0.7); EOSINOPHILS % (AUTO) 3.8 %; HGB - HEMOGLOBIN 11.8 g/dL (12.0-16.0); LYMPHOCYTES % (AUTO) 22.3 %; MEAN CORPUSCULAR HEMOGLOBIN 28.6 pg (27.0-31.0); MEAN CORPUSCULAR HGB CONC 33.2 g/dL (32.0-36.0); MEAN CORPUSCULAR VOLUME 86.2 fL (81.0-99.0); MEAN PLATELET VOLUME 10.9 fL (7.9-10.8); MONOCYTES # (AUTO) 0.4 10^3/uL (0.0-1.0); MONOCYTES % (AUTO) 8.5 %; NEUTROPHILS # (AUTO) 2.9 10^3/uL (1.5-6.6); PLT - PLATELET COUNT 119 10^3/uL (130-450); RED BLOOD COUNT 4.12 10^6/uL (4.20-5.40); RED CELL DISTRIBUTION WIDTH 12.5 % (12.0-15.0); WHITE BLOOD COUNT 4.5 x10^3/uL (4.8-10.8)
[2020-03-09 19:07] LABS: ALBUMIN 3.3 g/dL (3.2-5.5); BILIRUBIN,TOTAL 1.4 mg/dL (0.2-1.0); CALCIUM 8.9 mg/dL (8.5-10.3); CREATININE 0.6 mg/dL (0.4-1.0); TOTAL PROTEIN 6.5 g/dL (6.7-8.2)
== END 2020-03-09 23:59 | disposition home or self-care (01) ==
LOC: LAB.WCP 12:48
PROVIDERS: ATTEND Physician Assistant Medical
DX: I95.9 Hypotension, unspecified (principal); F33.9 Major depressive disorder, recurrent, unspecified
CPT/HCPCS: 36415; 80053; 84443; 85025

== ENCOUNTER 2020-05-26 08:00 | Outpatient (CLI) | payer MEDICARE, MEDICAID ==
[2020-05-26 18:13] LABS: BASOPHILS % (AUTO) 0.4 %; EOSINOPHILS # (AUTO) 0.1 10^3/uL (0.0-0.7); HGB - HEMOGLOBIN 12.5 g/dL (12.0-16.0); LYMPHOCYTES # (AUTO) 1.6 10^3/uL (1.5-3.5); LYMPHOCYTES % (AUTO) 29.6 %; MEAN CORPUSCULAR HEMOGLOBIN 29.4 pg (27.0-31.0); MEAN CORPUSCULAR HGB CONC 33.5 g/dL (32.0-36.0); MEAN CORPUSCULAR VOLUME 87.8 fL (81.0-99.0); MEAN PLATELET VOLUME 10.6 fL (7.9-10.8); MONOCYTES # (AUTO) 0.5 10^3/uL (0.0-1.0); MONOCYTES % (AUTO) 8.6 %; NEUTROPHILS # (AUTO) 3.2 10^3/uL (1.5-6.6); PLT - PLATELET COUNT 146 10^3/uL (130-450); RED BLOOD COUNT 4.25 10^6/uL (4.20-5.40); RED CELL DISTRIBUTION WIDTH 13.2 % (12.0-15.0); WHITE BLOOD COUNT 5.5 x10^3/uL (4.8-10.8)
[2020-05-26 18:26] LABS: ALBUMIN 3.9 g/dL (3.2-5.5); ALBUMIN/GLOBULIN RATIO 1.3 (1.0-2.2); BILIRUBIN,TOTAL 0.8 mg/dL (0.2-1.0); CALCIUM 9.9 mg/dL (8.5-10.3); CREATININE 0.7 mg/dL (0.4-1.0)
[2020-05-26 19:39] LABS: FREE T4 (FREE THYROXINE) 1.12 ng/dL (0.58-1.64)
== END 2020-05-26 23:59 | disposition home or self-care (01) ==
LOC: LAB.WCP 08:00
PROVIDERS: ATTEND Physician Assistant Medical
DX: K74.60 Unspecified cirrhosis of liver (principal); E03.9 Hypothyroidism, unspecified; D64.9 Anemia, unspecified
CPT/HCPCS: 36415; 80053; 81599; 82140; 84439; 84443; 85025

== ENCOUNTER 2020-08-11 08:00 | Outpatient (CLI) | payer MEDICARE, MEDICAID ==
[2020-08-11 20:23] LABS: FREE T4 (FREE THYROXINE) 0.9 ng/dL (0.58-1.64)
== END 2020-08-11 23:59 | disposition home or self-care (01) ==
LOC: LAB.WCP 08:00
PROVIDERS: ATTEND Family Medicine
DX: E03.9 Hypothyroidism, unspecified (principal)
CPT/HCPCS: 36415; 84439; 84443

== ENCOUNTER 2020-09-06 08:00 | Outpatient (CLI) | payer MEDICARE, MEDICAID ==
[2020-09-06 19:40] LABS: FREE T4 (FREE THYROXINE) 0.79 ng/dL (0.58-1.64)
== END 2020-09-06 23:59 | disposition home or self-care (01) ==
LOC: LAB.WCP 08:00
PROVIDERS: ATTEND Physician Assistant Medical
DX: E03.9 Hypothyroidism, unspecified (principal)
CPT/HCPCS: 36415; 84439; 84443

== ENCOUNTER 2020-11-18 13:43 | Outpatient (CLI) | payer MEDICARE, MEDICAID ==
--- NOTE | 2020-11-18 16:14 | Ultrasound Report ---
PROCEDURE: Head or Neck Soft Tissue INDICATIONS: CERVICAL LYMPHADENOPATHY TECHNIQUE: Real time scanning was performed of the neck region of interest, with image documentation . COMPARISON: None. FINDINGS: Focus sonographic evaluation of the patient's palpable area of concern indicates that the p alpable finding corresponds to the right submandibular gland, which is similar in size and appearance to the left. There is threshold enlarged cervical lymph nodes in neck. IMPRESSION: No cervical lymphadenopathy. The patient's palpable area of concern corresponds to a normal-appearing and normal-sized right submandibular gland. CT of the neck with IV contrast would be recommended if there is continued clinical concern for a neck mass or cervical lymphadenopathy. Reviewed by: Jordan Lara MD on 11/18/2020 4:13 PM PST Approved by: Jordan Lara MD on 11/18/2020 4:13 PM PST Station ID: [id number]
== END 2020-11-18 13:44 | disposition home or self-care (01) ==
LOC: DI 13:43
PROVIDERS: ATTEND Physician Assistant Medical
DX: R59.0 Localized enlarged lymph nodes (principal)

== ENCOUNTER 2021-02-22 08:00 | Outpatient (CLI) | payer MEDICARE, MEDICAID ==
[2021-02-22 12:30] LABS: BASOPHILS % (AUTO) 0.4 %; EOSINOPHILS # (AUTO) 0.1 10^3/uL (0.0-0.7); EOSINOPHILS % (AUTO) 1.2 %; HCT - HEMATOCRIT 39.6 % (37.0-47.0); HGB - HEMOGLOBIN 13.6 g/dL (12.0-16.0); LYMPHOCYTES # (AUTO) 0.9 10^3/uL (1.5-3.5); LYMPHOCYTES % (AUTO) 17.6 %; MEAN CORPUSCULAR HEMOGLOBIN 30.5 pg (27.0-31.0); MEAN CORPUSCULAR HGB CONC 34.3 g/dL (32.0-36.0); MEAN CORPUSCULAR VOLUME 88.8 fL (81.0-99.0); MONOCYTES # (AUTO) 0.3 10^3/uL (0.0-1.0); MONOCYTES % (AUTO) 5.9 %; NEUTROPHILS # (AUTO) 3.6 10^3/uL (1.5-6.6); NEUTROPHILS % (AUTO) 74.5 %; PLT - PLATELET COUNT 101 10^3/uL (130-450); RED BLOOD COUNT 4.46 10^6/uL (4.20-5.40); RED CELL DISTRIBUTION WIDTH 12.8 % (12.0-15.0); WHITE BLOOD COUNT 4.9 x10^3/uL (4.8-10.8)
[2021-02-22 12:49] LABS: ALBUMIN 4.1 g/dL (3.2-5.5); ALBUMIN/GLOBULIN RATIO 1.5 (1.0-2.2); CALCIUM 9.1 mg/dL (8.5-10.3); CREATININE 0.8 mg/dL (0.4-1.0); TOTAL PROTEIN 6.8 g/dL (6.7-8.2)
[2021-02-22 13:00] LABS: THYROID STIMULATING HORMONE 1.14 uIU/mL (0.34-5.60)
== END 2021-02-22 23:59 | disposition home or self-care (01) ==
LOC: LAB.WCP 08:00
PROVIDERS: ATTEND Physician Assistant Medical
DX: E03.9 Hypothyroidism, unspecified (principal); E64.9 Sequelae of unspecified nutritional deficiency
CPT/HCPCS: 36415; 80053; 84443; 85025

== ENCOUNTER 2021-04-06 09:45 | Outpatient (CLI) | payer MEDICARE, MEDICAID ==
--- NOTE | 2021-04-06 12:19 | XRAY Report ---
PROCEDURE: Ankle 3 View LT INDICATIONS: SPRAIN OF CALCANEOFIBULAR LIGAMENT, L ANKLE TECHNIQUE: 3 views of the ankle were acquired. COMPARISON: None FINDINGS: Bones: No fractures or dislocations. Ankle mortise is normally aligned. No suspicious bony lesions . Large plantar calcaneal bone spur. Mild midfoot osteoarthritis. Soft tissues: No tibiotalar joint effusion. Achilles tendon appears normal. IMPRESSION: No fracture. No acute osseous lesion. If there persistent symptoms or continued clinical concern for pathology, then repeat plain film radiographs (7-10 days) or advanced imaging (CT, MR, bone scan) sh ould be considered for further evaluation. Reviewed by: Kinza Jolley MD, PhD on 04/06/2021 12:17 PM PDT Approved by: Kinza Jolley MD, PhD on 04/06/2021 12:17 PM PDT Station ID: [id number]
== END 2021-04-06 23:59 | disposition home or self-care (01) ==
LOC: DI.N 09:45
PROVIDERS: ATTEND Emergency Medicine
DX: S93.412A Sprain of calcaneofibular ligament of left ankle, initial encounter (principal)

== ENCOUNTER 2021-04-14 16:47 | Outpatient (CLI) | payer MEDICARE, MEDICAID | END 2021-04-14 16:48 | disposition home or self-care (01) | LOC: COV 16:47 | PROVIDERS: ATTEND Family Medicine | DX: R05 Cough (principal); R19.7 Diarrhea, unspecified; R09.81 Nasal congestion; J34.89 Other specified disorders of nose and nasal sinuses; Z20.822 Contact with and (suspected) exposure to COVID-19 ==

== ENCOUNTER 2021-06-21 09:41 | Outpatient (CLI) | payer MEDICARE, MEDICAID ==
[2021-06-21 12:31] LABS: CHOL/HDL RATIO 3.2 (<4.4); CHOLESTEROL 187 mg/dL; HDL CHOLESTEROL 59 mg/dL; LDL CHOLESTEROL,CALCULATED 102 mg/dL; LDL/HDL RATIO 1.7 (<4.4); TRIGLYCERIDES 128 mg/dL; VLDL CHOLESTEROL 26 mg/dL
[2021-06-21 13:09] LABS: ESTIMATED AVERAGE GLUCOSE 103 mg/dL (70-100); HEMOGLOBIN A1c% 5.2 % (4.27-6.07)
== END 2021-06-21 23:59 | disposition home or self-care (01) ==
LOC: LAB.WCP 09:41
PROVIDERS: ATTEND Psychiatry & Neurology Psychiatry
DX: Z79.899 Other long term (current) drug therapy (principal)
CPT/HCPCS: 36415; 80061; 83036; 83721

== ENCOUNTER 2021-08-25 08:00 | Outpatient (CLI) | payer MEDICARE, MEDICAID | END 2021-08-25 23:59 | LOC: LAB.N 08:00 | PROVIDERS: ATTEND Physician Assistant Medical | DX: R39.9 Unspecified symptoms and signs involving the genitourinary system (principal) | CPT/HCPCS: 87086; 87181 ==

== ENCOUNTER 2021-10-13 12:33 | Outpatient (CLI) | payer MEDICARE, MEDICAID ==
--- NOTE | 2021-10-13 18:12 | DEXA Report ---
PROCEDURE: Dexa Spine and/or Hip INDICATIONS: POST MENOPAUSAL TECHNIQUE: Dual energy x-ray absorptiometry (DXA) was performed on a Hippflow System. Regions measur ed are the AP Spine, femoral neck, and if needed forearm. COMPARISON: 07/03/2016. FINDINGS: Lumbar Spine: Bone Mineral Density 0.942 g/cm/cm,T score -1.9, osteopenia Left Hip: Bone Mineral Density 0.886 g/cm/cm,T score -1.0, normal bone density Left Femoral Neck: Bone Mineral Density 0.816 g/cm/cm, T score -1.6, osteopenia (T score greater or equal to -1.0: NORMAL) (T score from -1.1 to -2.4: OSTEOPENIA) (T score less than or equal to -2.5 to: OSTEOPOROSIS) Impression: OSTEOPENIA. Patient is at increased risk for fracture. Patients with diagnosis of osteoporosis or osteopenia should have regular bone mineral density assess ment. For those eligible for Medicare, routine testing is allowed once every 2 years. Testing frequ ency can be increased for patients who have rapidly progressing disease or for those who are receivin g medical therapy to restore bone mass. Reviewed by: Anson Brown MD on 10/13/2021 6:11 PM PST Approved by: Anson Brown MD on 10/13/2021 6:11 PM PST Station ID: [id number]
== END 2021-10-13 12:34 | disposition home or self-care (01) ==
LOC: DI 12:33
PROVIDERS: ATTEND Physician Assistant Medical
DX: Z78.0 Asymptomatic menopausal state (principal); M85.89 Other specified disorders of bone density and structure, multiple sites

== ENCOUNTER 2021-10-19 09:26 | Outpatient (CLI) | payer MEDICARE, MEDICAID ==
--- NOTE | 2021-10-20 08:41 | Mammography Report ---
BILATERAL DIGITAL SCREENING MAMMOGRAM 3D/2D: 10/19/2021 CLINICAL: Routine screening. Comparison is made to exams dated: 03/21/2018 mammogram, 11/13/2016 mammogram, 06/29/2015 mammogram, mammogram, 11/28/2013 mammogram, and 07/02/2012 mammogram - [facility]. The re are scattered fibroglandular elements in both breasts. No significant masses, calcifications, or other findings are seen in either breast. There has been no significant interval change. IMPRESSION: NEGATIVE There is no mammographic evidence of malignancy. A 1 year screening mammogram is recommended. This exam was interpreted at Station ID: [id number]. NOTE: For mammograms, a report in lay terms will be sent to the patient. Approximately 15% of breast malignancies will not be visualized mammographically. In the management of a palpable breast mass, a negative mammogram must not discourage biopsy of a clinically suspicious lesion. Electronically Signed By: Anson carlos/keyur:10/19/2021 17:06:26 ACR BI-RADS Category 1: Negative 3341F PARENCHYMAL PATTERN: (A) - The breast(s) demonstrate(s) scattered fibroglandular densities. BI-RADS CATEGORY: (1) - 1 RECOMMENDATION: (ANNUAL) - Recommend routine annual screening mammography. 20221020 1 year screening LATERALITY: (B)
== END 2021-10-19 09:27 | disposition home or self-care (01) ==
LOC: DI.N 09:26
DX: Z12.31 Encounter for screening mammogram for malignant neoplasm of breast (principal)

== ENCOUNTER 2022-06-15 13:51 | Outpatient (CLI) | payer MEDICARE, MEDICAID ==
[2022-06-15 18:24] LABS: THYROID STIMULATING HORMONE 17.65 uIU/mL (0.34-5.60)
[2022-06-15 18:56] LABS: FREE T4 (FREE THYROXINE) 0.69 ng/dL (0.58-1.64)
== END 2022-06-15 13:52 | disposition home or self-care (01) ==
LOC: LAB.N 13:51
PROVIDERS: ATTEND Physician Assistant Medical
DX: E03.9 Hypothyroidism, unspecified (principal)
CPT/HCPCS: 36415; 84439; 84443

== ENCOUNTER 2022-07-21 14:39 | Outpatient (CLI) | payer MEDICARE, MEDICAID ==
[2022-07-21 18:16] LABS: THYROID STIMULATING HORMONE 1.75 uIU/mL (0.34-5.60)
== END 2022-07-21 14:40 | disposition home or self-care (01) ==
LOC: LAB.N 14:39
PROVIDERS: ATTEND Physician Assistant Medical
DX: E03.9 Hypothyroidism, unspecified (principal)
CPT/HCPCS: 36415; 84443

== ENCOUNTER 2023-02-13 13:06 | Outpatient (CLI) | payer MEDICARE, MEDICAID ==
[2023-02-13 17:53] LABS: BASOPHILS % (AUTO) 0.5 %; EOSINOPHILS # (AUTO) 0.1 10^3/uL (0.0-0.7); EOSINOPHILS % (AUTO) 2.9 %; HCT - HEMATOCRIT 38.6 % (37.0-47.0); LYMPHOCYTES # (AUTO) 0.6 10^3/uL (1.5-3.5); LYMPHOCYTES % (AUTO) 14.8 %; MEAN CORPUSCULAR HEMOGLOBIN 30.3 pg (27.0-31.0); MEAN CORPUSCULAR HGB CONC 33.7 g/dL (32.0-36.0); MONOCYTES # (AUTO) 0.2 10^3/uL (0.0-1.0); MONOCYTES % (AUTO) 5.8 %; NEUTROPHILS # (AUTO) 2.9 10^3/uL (1.5-6.6); NEUTROPHILS % (AUTO) 75.7 %; PLT - PLATELET COUNT 76 10^3/uL (130-450); RED BLOOD COUNT 4.29 10^6/uL (4.20-5.40); RED CELL DISTRIBUTION WIDTH 13.1 % (12.0-15.0); WHITE BLOOD COUNT 3.8 x10^3/uL (4.8-10.8)
[2023-02-13 18:10] LABS: CALCIUM 8.8 mg/dL (8.5-10.3); CREATININE 0.7 mg/dL (0.4-1.0); MAGNESIUM 2.1 mg/dL (1.7-2.8)
== END 2023-02-13 13:07 | disposition home or self-care (01) ==
LOC: LAB.N 13:06
PROVIDERS: ATTEND Physician Assistant Medical
DX: R00.2 Palpitations (principal)
CPT/HCPCS: 36415; 80048; 83735; 84443; 85025

== ENCOUNTER 2023-02-22 12:33 | Outpatient (CLI) | payer MEDICARE, MEDICAID | END 2023-02-22 12:34 | disposition home or self-care (01) | LOC: MAC.INF 12:33 | PROVIDERS: ATTEND Physician Assistant Medical | DX: R00.2 Palpitations (principal) | CPT/HCPCS: 93242 ==

== ENCOUNTER 2023-03-03 11:30 | Outpatient (CLI) | payer MEDICARE, MEDICAID | END 2023-03-03 11:31 | disposition home or self-care (01) | LOC: MAC.INF 11:30 | PROVIDERS: ATTEND Physician Assistant Medical | DX: I47.1 Supraventricular tachycardia (principal); I49.1 Atrial premature depolarization; I49.3 Ventricular premature depolarization | CPT/HCPCS: 93244 ==

== ENCOUNTER 2023-04-26 11:11 | Outpatient (CLI) | payer MEDICARE, MEDICAID ==
--- NOTE | 2023-04-26 17:18 | XRAY Report ---
PROCEDURE: Knee 3 View RT INDICATIONS: KNEE PAIN, RIGHT TECHNIQUE: 3 views of the right knee(s) were acquired. COMPARISON: None. FINDINGS: Bones: No fractures or dislocations. No suspicious bony lesions. Soft tissues: Small knee joint effusion. No suspicious soft tissue calcifications or masses. IMPRESSION: Small knee joint effusion. No acute bony abnormality. If there remains a high clinical concern for fr acture, consider cross-sectional imaging now. If pain persists, consider repeat x-ray in 10-14 days o r cross-sectional imaging. Reviewed by: Nathanael Greene MD on 04/26/2023 5:17 PM PDT Approved by: Nathanael Greene MD on 04/26/2023 5:17 PM PDT Station ID: [id number]
== END 2023-04-26 11:12 | disposition home or self-care (01) ==
LOC: DI 11:11
PROVIDERS: ATTEND Physician Assistant Medical
DX: M25.561 Pain in right knee (principal); M25.461 Effusion, right knee

== ENCOUNTER 2023-09-28 09:46 | Outpatient (CLI) | payer MEDICARE, MEDICAID ==
--- NOTE | 2023-10-03 11:21 | XRAY Report ---
PROCEDURE: Lumbar Spine 2-3V INDICATIONS: OSTEOARTHIRITS, LOW BACK PAIN TECHNIQUE: 2views of the lumbar spine were acquired. COMPARISON: None. FINDINGS: Bones: 5 [id number] vertebrae are present. Osteopenia noted. There is normal bony alignment. No vertebral body compression fractures. No suspicious bony lesions. Through posterior lumbar fusion changes noted. No radiographic evidence of hardware loosening or infection. Soft tissues: Overlying bowel gas pattern is normal. Surgical clips project over the right upper avelina drant. Cardiac monitoring device projects over the chest. IMPRESSION: 1. L3 through L5 posterior lumbar fusion changes 2. No acute findings Reviewed by: Jc Leon MD on 09/28/2023 10:38 AM PST Approved by: Jc Leon MD on 09/28/2023 10:38 AM PST Station ID: [id number]
--- NOTE | 2023-10-03 11:21 | XRAY Report ---
PROCEDURE: Cervical Spine 2-3V INDICATIONS: OSTEOARTHIRITS, LOW BACK PAIN TECHNIQUE: 4 view(s) of the cervical spine were acquired. COMPARISON: X-ray C-spine dated 11/27/2019. FINDINGS: Bones: C7 is obscured by soft tissues on the lateral view and thus difficult to evaluate. ACDF hardwa re is again noted without evidence of hardware loosening or infection. Grade 1 anterolisthesis of C3 over C4 is also noted, slightly more prominent than on prior study from 2019. The lateral masses of C 1 are not seen on the open mouth view due to overlying soft tissues, teeth. No suspicious bony lesion s. Soft tissues: No prevertebral soft tissue swelling. IMPRESSION: 1. Limited evaluation of C7 on the lateral view due to overlying soft tissues. Similarly, C1 is not s een on the frontal view. 2. Grade 1 anterolisthesis of C3 over C4, slightly more prominent than on prior study from 2019. 3 ACDF hardware again noted Reviewed by: Jc Leon MD on 09/28/2023 10:55 AM PST Approved by: cJ Leon MD on 09/28/2023 10:55 AM PST Station ID: [id number]
== END 2023-09-28 09:47 | disposition home or self-care (01) ==
LOC: DI 09:46
PROVIDERS: ATTEND Physician Assistant Medical
DX: Z98.1 Arthrodesis status (principal); M43.12 Spondylolisthesis, cervical region

== ENCOUNTER 2023-10-23 17:03 | Emergency (ER) | payer MEDICARE, MEDICAID ==
--- NOTE | 2023-10-23 18:02 | ED Physician Documentation ---
History of Present Illness - Stated complaint Stated Complaint: HBP/GUILLEN/SOA - Chief complaint Chief Complaint: Neuro - History obtained from History obtained from: Patient, Family - History of Present Illness Timing: How many weeks ago (3) Pain level max: 8 Pain level now: 8 - Additonal information Additional information: 68-year-old female presents to the emergency department with a headache ongoing for the past 3 weeks as well as elevated blood pressure. She states that she has liver cancer but does not know what type. She states that she is on blood pressure medication but does not know which ones. She states she is on chemotherapy, but does not know which ones. All of her care is at [facility]. She states that she is on "IV chemotherapy that does not make you lose your hair". No fevers. No chills. No trauma. No nausea or vomiting. No confusion. No focal neurological deficits. I asked the patient's to return to their home, and get any paperwork regarding her cancer care and any medications that he can find. He did return and she is on Tecentriq and Avastin. She is also on metoprolol and spironolactone. Appears to have stage Ia hepatocellular carcinoma. 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: None : Retention, Incontinence, Kidney stones HEENT: Chronic vision loss Psych: Depression, Anxiety, Panic attacks Musculoskeletal: Osteoarthritis, Chronic back pain Derm: None Other Past Medical History: liver cancer - Past Surgical History Past Surgical History: Yes General: Cholecystectomy Ortho: Spine surgery /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 PROCESSING: Hysterectomy HEENT: Tonsil/Adenoidectomy - Present Medications Home Medications: Ambulatory Orders Medication Instructions Recorded Confirmed Spironolactone 25 mg PO DAILY 08/28/14 10/23/23 Albuterol Sulfate [Proair 2 puffs IH Q4HR PRN 01/10/20 10/23/23 Digihaler] Quetiapine Fumarate 100 mg PO DAILY PM 01/10/20 10/23/23 ondansetron HCL [Zofran] 8 mg PO Q6H PRN 01/10/20 10/23/23 Levothyroxine [Synthroid] 125 mcg PO QDAC 10/23/23 10/23/23 Metoprolol Succinate [Toprol Xl] 25 mg PO DAILY 10/23/23 10/23/23 Sertraline [Zoloft] 50 mg PO DAILY 10/23/23 10/23/23 amLODIPine [Norvasc] 5 mg PO DAILY #14 tablet 10/23/23 - Allergies Allergies/Adverse Reactions: Allergies Allergy/AdvReac Type Severity Reaction Status Date / Time iodine Allergy Unknown Verified 10/23/23 17:11 olanzapine [From Zyprexa] Allergy Unknown Verified 10/23/23 17:11 contrast dye Allergy Unknown Uncoded 02/22/23 13:10 - Social History Does the pt smoke?: No Smoking Status: Never smoker Does the pt drink ETOH?: No Does the pt have substance abuse?: No - Immunizations Immunizations are current?: No Immunizations: TDAP >10years/unknown - POLST Patient has POLST: No PD ED PE NORMAL - Vitals Vital signs reviewed: Yes - General General: Alert and oriented X 3, No acute distress - HEENT HEENT: Atraumatic, PERRL, Ears normal, Moist mucous membranes, Pharynx benign - Neck Neck: Supple, no meningeal sign, No bony TTP - Cardiac Cardiac: RRR, Strong equal pulses - Respiratory Respiratory: No respiratory distress, Clear bilaterally - Abdomen Abdomen: Soft, Non tender, Non distended - Back Back: No CVA TTP, No spinal TTP - Derm Derm: Warm and dry - Extremities Extremities: No edema - Neuro Neuro: Alert and oriented X 3, 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, No motor deficit, No sensory deficit, Normal speech Eye Opening: Spontaneous Motor: Obeys Commands Verbal: Oriented GCS Score: 15 - Psych Psych: Normal mood, Normal affect Results - Vitals Vitals: Vital Signs - 24 hr 10/23/23 10/23/23 10/23/23 17:12 17:52 19:19 Temperature 36 C L Heart Rate 70 74 67 Respiratory 18 24 22 Rate Blood Pressure 201/83 H 197/96 H 187/85 H O2 Saturation 99 98 98 10/23/23 21:00 Temperature Heart Rate 69 Respiratory 18 Rate Blood Pressure 188/92 H O2 Saturation 95 Oxygen O2 Source Room air - EKG (time done) 1837 EKG releavant findings:: EKG personally interpreted by author of this note. Relevant findings are: Rate: Rate (enter#) (67) Rhythm: NSR [place]: Normal Intervals: Normal NM QRS: Normal Ischemia: Normal ST segments - Labs Labs: Laboratory Tests 10/23/23 10/23/23 18:15 18:15 WBC 3.3 L RBC 4.42 Hgb 13.2 Hct 38.7 MCV 87.6 MCH 29.9 MCHC 34.1 RDW 13.3 Plt Count 66 L MPV 9.6 Neut # (Auto) 2.3 Lymph # (Auto) 0.6 L [place] # (Auto) 0.2 Eos # (Auto) 0.1 Baso # (Auto) 0.0 Absolute Nucleated RBC 0.00 Nucleated RBC % 0.0 Sodium 140 Potassium 3.9 Chloride 107 Carbon Dioxide 28 Anion Gap 5.0 L BUN 12 Creatinine 0.6 Estimated GFR (MDRD) 100 Glucose 147 H Calcium 8.9 Total Bilirubin 0.9 AST 47 H ALT 28 Alkaline Phosphatase 125 H Troponin I High Sens 37.0 H* Total Protein 6.2 L Albumin 3.6 Globulin 2.6 Albumin/Globulin Ratio 1.4 Lipase 90 H - Rads (name of study) head Ct Relevant Findings:: Final report received, See rad report PD Medical Decision Making - ED course Complexity details: reviewed results, re-evaluated patient, considered differential, d/w patient, d/w family ED course: No acute findings on head CT. Likely that the headache is due to her chemotherapy as it started immediately after chemotherapy. Likely the Avastin. The elevated blood pressures are also likely due to the Avastin. She was given droperidol, Toradol and Dilaudid. Headache fully resolved. She was also given amlodipine for her blood pressure this appears to work well according to studies when paired with Avastin. We will start her on 5 mg daily. Informed the patient that she needs to call her oncologist in the morning and inform them of her elevated blood pressures and headaches since the Avastin. Patient states that she will call in the morning. Will have her continue her other medications as previously prescribed. Blood pressure did decrease in the emergency department, but is still elevated. No evidence of endorgan damage acutely. No significant lab abnormalities. Minimal high-sensitivity troponin elevation. Not a significant elevation for 3 weeks of symptoms. No chest pain, shortness of breath or cough. No ischemic changes on EKG. No evidence of ACS. Patient counseled regarding signs and symptoms for which I believe and urgent re- evaluation would be necessary. Patient with good understanding of and agreement to plan and is comfortable going home at this time This document was made in part using voice recognition software. While efforts are made to proofread this document, sound alike and grammatical errors may occur. NIH stroke scale of 0. Normal neurological exam, normal vision. Normal gait. Departure - Departure Disposition: 01 Home, Self Care Clinical Impression: Headache Qualifiers: Headache type: unspecified Headache chronicity pattern: acute headache Intractability: not intractable Qualified Code(s): R51.9 - Headache, unspecified Hypertension Qualifiers: Hypertension type: unspecified Qualified Code(s): I10 - Essential (primary) hypertension Condition: Good Instructions: ED Cephalgia Unspecified Follow-Up: Melissa Singh PA-C [Primary Care Provider] - Prescriptions: amLODIPine [Norvasc] 5 mg PO DAILY #14 tablet Comments: As we have discussed, both the Avastin and Tecentriq can cause headaches. At the Avastin can also cause your blood pressure to increase. You should talk to your oncologist tomorrow to discuss the side effects you are having from your chemotherapy. Your laboratory testing and head CT do not show any acute abnormalities today. Please follow-up with your doctor for further care and return if you worsen. We will add amlodipine to your blood pressure regimen at home. Because of the significant elevation of your blood pressure, your oncologist may need to stop the Avastin or change to a different medication for you. Your prescription was sent to [facility] in [place]. Forms: PCP List Discharge Date/Time: 10/23/23 21:27
[2023-10-23 18:31] LABS: BASOPHILS % (AUTO) 0.6 %; EOSINOPHILS # (AUTO) 0.1 10^3/uL (0.0-0.7); EOSINOPHILS % (AUTO) 4.2 %; HCT - HEMATOCRIT 38.7 % (37.0-47.0); HGB - HEMOGLOBIN 13.2 g/dL (12.0-16.0); LYMPHOCYTES # (AUTO) 0.6 10^3/uL (1.5-3.5); LYMPHOCYTES % (AUTO) 17.2 %; MEAN CORPUSCULAR HEMOGLOBIN 29.9 pg (27.0-31.0); MEAN CORPUSCULAR HGB CONC 34.1 g/dL (32.0-36.0); MEAN CORPUSCULAR VOLUME 87.6 fL (81.0-99.0); MEAN PLATELET VOLUME 9.6 fL (7.9-10.8); MONOCYTES # (AUTO) 0.2 10^3/uL (0.0-1.0); MONOCYTES % (AUTO) 7.2 %; NEUTROPHILS # (AUTO) 2.3 10^3/uL (1.5-6.6); NEUTROPHILS % (AUTO) 70.5 %; PLT - PLATELET COUNT 66 10^3/uL (130-450); RED BLOOD COUNT 4.42 10^6/uL (4.20-5.40); RED CELL DISTRIBUTION WIDTH 13.3 % (12.0-15.0); WHITE BLOOD COUNT 3.3 x10^3/uL (4.8-10.8)
--- NOTE | 2023-10-23 18:38 | CT Report ---
PROCEDURE: Head WO INDICATIONS: GUILLEN x 3 weeks, h/o HCC at [facility] TECHNIQUE: Noncontrast 4.5 mm thick angled axial sections acquired from the foramen magnum to the vertex. For r adiation dose reduction, the following was used: automated exposure control, adjustment of mA and/or kV according to patient size. COMPARISON: Prior head CT, 08/03/2017. Correlation is also made with brain MRI, 12/06/2019 FINDINGS: Image quality: Excellent. CSF spaces: Basal cisterns are patent. No extra-axial fluid collections. Ventricles are normal in size and shape. Brain: No midline shift. No intracranial masses or hemorrhage. Mckeon-white matter interface is norm al. Skull and face: Calvarium and visualized facial bones are intact, without suspicious lesions. Sinuses: Visualized sinuses and mastoids are clear. IMPRESSION: Unremarkable noncontrast head CT, without a cause of headache identified. To the limits of this noncontrast study, no findings of masses or mass effect can be seen. Negative for hydrocephalus. Reviewed by: Milton Perea MD on 10/23/2023 5:37 PM [place] Approved by: Milton Perea MD on 10/23/2023 5:37 PM AKST Station ID: [id number]
[2023-10-23 18:40] LABS: ALBUMIN 3.6 g/dL (3.2-5.5); ALBUMIN/GLOBULIN RATIO 1.4 (1.0-2.2); BILIRUBIN,TOTAL 0.9 mg/dL (0.2-1.0); CALCIUM 8.9 mg/dL (8.5-10.3); CREATININE 0.6 mg/dL (0.6-1.3); POTASSIUM 3.9 mmol/L (3.5-4.5); TOTAL PROTEIN 6.2 g/dL (6.4-8.9)
[2023-10-23] MEDS: DROPERIDOL 5 MG/2 ML VIAL IVP STA (19:41)
[2023-10-23] MEDS: KETOROLAC 30 MG/ML VIAL IVP STA (19:41)
[2023-10-23] MEDS: HYDROmorphone 1 MG/ML CARPUJECT IVP STA (20:35)
[2023-10-23] MEDS: amLODIPine 5 MG TABLET PO STA (21:14)
[2023-10-23 21:36] VITALS: BP 188/92; O2SAT 95
== END 2023-10-23 21:27 | disposition home or self-care (01) ==
LOC: ED 17:03
DX: R51.9 Headache, unspecified (principal); I10 Essential (primary) hypertension
CPT/HCPCS: 36415; 70450; 80053; 83690; 84484; 85025; 93005; 96374; 96375; 99284; A9270; J1170

== ENCOUNTER 2024-01-29 10:50 | Outpatient (CLI) | payer MEDICARE, MEDICAID ==
--- NOTE | 2024-01-30 09:27 | Mammography Report ---
BILATERAL DIGITAL SCREENING MAMMOGRAM 3D/2D: 01/29/2024 CLINICAL: Routine screening. Comparison is made to exams dated: 10/19/2021 mammogram, 03/21/2018 mammogram, 11/13/2016 mammogram, 06/17 mammogram, 12/12/2013 mammogram, and 11/28/2013 mammogram - [facility]. There are scattered areas of fibroglandular density in both breasts (category b / 25%-50% glandular t issue). No significant masses, calcifications, or other findings are seen in either breast. There has been no significant interval change. IMPRESSION: NEGATIVE There is no mammographic evidence of malignancy. A 1 year screening mammogram is recommended. Based on the Tyrer Cuzick model (a risk assessment model) the patient's lifetime risk is 4.7% and her 10 year risk is 2.5%. According to the ACR, ACS, and NCCN guidelines, an annual breast MRI exam mark g with mammogram is recommended if the patient's lifetime risk is 20% or greater. This exam was interpreted at Station ID: [id number]. NOTE: For mammograms, a report in lay terms will be sent to the patient. Approximately 15% of breast malignancies will not be visualized mammographically. In the management of a palpable breast mass, a negative mammogram must not discourage biopsy of a clinically suspicious lesion. Electronically Signed By: Anson carlos/keyur:01/29/2024 17:11:18 ACR BI-RADS Category 1: Negative [id number] PARENCHYMAL PATTERN: (A) - The breast(s) demonstrate(s) scattered fibroglandular densities. BI-RADS CATEGORY: (1) - 1 RECOMMENDATION: (ANNUAL) - Recommend routine annual screening mammography. [id number] 1 year screening LATERALITY: (B)
== END 2024-01-29 10:51 | disposition home or self-care (01) ==
LOC: DI.N 10:50
DX: Z12.31 Encounter for screening mammogram for malignant neoplasm of breast (principal); R92.323 Mammographic fibroglandular density, bilateral breasts